=== PATIENT | female | born 1975 | race Caucasian/White ===

== ENCOUNTER 2017-11-15 11:46 | Emergency (ER) | payer MEDICARE, OTHER ==
[2017-11-15 12:16] VITALS: BP 106/69; PULSE 58; RESP 18; TEMP 98.1
[2017-11-15] MEDS ORDERED: DIPH,PERTUS(ACELL)TETVAC-LF 0.5 ML VIAL IM ONE (12:26)
--- NOTE | 2017-11-15 12:45 | XR ---
EXAMINATION TYPE: XR hand complete RT DATE OF EXAM: 11/15/2017 COMPARISON: NONE HISTORY: Pain and laceration TECHNIQUE: Three views are submitted. FINDINGS: The osseous structures are intact. The joint spaces are preserved and there is no acute fracture or dislocation. IMPRESSION: 1. No definite acute fracture or dislocation if symptoms persist, follow-up study in 7 to 10 days wo uld be suggested
--- NOTE | 2017-11-15 12:57 | ED ---
Wound/Laceration HPI - General Chief Complaint: Wound/Laceration Stated Complaint: Hand injury Time Seen by Provider: 11/15/17 12:20 Source: patient, RN notes reviewed Mode of arrival: ambulatory Limitations: no limitations - History of Present Illness Initial Comments: This is a 42-year-old female who presents to the emergency department with chief complaint of right hand laceration. Patient states that prior to arrival she was cutting a wong of hard brownies with a kitchen knife. She slipped and cut into the palm of her right hand. Patient states that she feels like the knife went deep into her hand. She states bleeding is controlled. Patient is unsure if she is up-to-date with her tetanus vaccination. Denies any other injuries. Denies fever, chills, abdominal pain, nausea or vomiting, constipation or diarrhea, numbness or tingling, headache or vision changes. - Related Data Home Medications Medication Instructions Recorded Confirmed ARIPiprazole [Abilify] 20 mg PO DAILY 11/15/17 11/15/17 Escitalopram [Lexapro] 20 mg PO DAILY 11/15/17 11/15/17 Previous Rx's Medication Instructions Recorded Cephalexin [Keflex] 500 mg PO Q12HR #20 cap 11/15/17 Allergies Allergy/AdvReac Type Severity Reaction Status Date / Time codeine phosphate AdvReac Chest Pain Verified 11/15/17 12:16 [From Tylenol-Codeine #3] tramadol AdvReac Itching Verified 11/15/17 12:16 Review of Systems ROS Statement: Those systems with pertinent positive or pertinent negative responses have been documented in the HPI. ROS Other: All systems not noted in ROS Statement are negative. Past Medical History Past Medical History: Osteoarthritis (OA) History of Any Multi-Drug Resistant Organisms: MRSA Date of last positivie culture/infection: 2009/MRSA MDRO Source:: back Past Surgical History: Section, Joint Replacement Additional Past Surgical History / Comment(s): LEFT and right knee Past Psychological History: Bipolar, Depression Smoking Status: Current every day smoker Past Alcohol Use History: Occasional Past Drug Use History: Marijuana General Exam - General Exam Comments Initial Comments: General: Awake and alert, well-developed; in no apparent distress. HEENT: Head atraumatic, normocephalic. Pupils are equal, round and reactive to light. Extraocular movements intact. Neck: Supple. Normal ROM. Cardiovascular: Regular rate and rhythm. No murmurs, rubs or gallops. Chest symmetrical. Respiratory: Lungs clear to auscultation bilaterally. No wheezes, rales or rhonchi. Normal respiratory effort with no use of accessory muscles. Musculoskeletal: Normal active range of motion of right hand. There is a small 1 cm linear laceration at the thenar eminence. Bleeding is controlled. Sensation is intact. Radial pulses are 2+ equal and palpable bilaterally. Skin: [place], warm and dry. Neurological: Alert and oriented x3. CN II-XII grossly intact. Speech is fluent and answers are appropriate. No focal neuro deficits. Psychiatric: Normal mood and affect. No overt signs of depression or anxiety noted. Limitations: no limitations Course Vital Signs 11/15/17 12:13 Temperature 98.1 F Pulse Rate 58 L Respiratory 18 Rate Blood Pressure 106/69 O2 Sat by Pulse 97 Oximetry Procedures - Laceration Laceration #1 Consent Obtained: verbal consent Indication: laceration Site: hand (right hand thenar eminence ) Size (cm): 1 Description: linear Depth: simple, single layer Anesthetic Used: lidocaine 1% Anesthesia Technique: local infiltration Amount (mls): 3 Pre-repair: wound explored, irrigated extensively, deep structures intact Type of Sutures: nylon Size of Sutures: 5-0 Number of Sutures: 2 Technique: simple, interrupted Patient Tolerated Procedure: well, no complications Medical Decision Making - Medical Decision Making This is a 42-year-old female presents to emergency department with chief complaint of right hand laceration. 2 sutures were placed and patient tolerated well without complication. She is neurovascularly intact. X-ray revealed no sign of bone involvement. Patient will be discharged home with prescription for Keflex. Return parameters were discussed. Patient is in agreement with plan and voices understanding. All questions were answered. - Radiology Data Radiology results: report reviewed Right hand x-ray impression: 1. No definite acute fracture dislocation if symptoms persist, follow-up study in 7-10 days would be suggested. Disposition Clinical Impression: Hand laceration Disposition: HOME SELF-CARE Condition: Good Instructions: Laceration (ED) Additional Instructions: Please have sutures removed in 10-14 days. Please take medications as prescribed. Please follow up with primary care provider within 1-2 days. Return to emergency department if symptoms should worsen or any concerns arise. Prescriptions: Cephalexin [Keflex] 500 mg PO Q12HR #20 cap Referrals: None,Stated [Primary Care Provider] - 1-2 days Xenia De Santiago MD [STAFF PHYSICIAN] - 1-2 days Time of Disposition: 13:25
== END 2017-11-15 13:29 | disposition home or self-care (01) ==
LOC: EC 11:46
DX: S61.411A Laceration without foreign body of right hand, initial encounter (principal); F31.9 Bipolar disorder, unspecified; F17.200 Nicotine dependence, unspecified, uncomplicated; Z23 Encounter for immunization; Z86.14 Personal history of Methicillin resistant Staphylococcus aureus infection; Z79.899 Other long term (current) drug therapy; Z88.5 Allergy status to narcotic agent; Z88.6 Allergy status to analgesic agent; W26.0XXA Contact with knife, initial encounter
CPT/HCPCS: 12001; 90471; 90715; 99283

== ENCOUNTER 2018-02-07 00:32 | Emergency (ER) | payer MEDICARE, OTHER ==
[2018-02-07 00:40] VITALS: RESP 18
--- NOTE | 2018-02-07 01:27 | XR ---
EXAM: XR Left Ankle Complete, 3 or More Views CLINICAL HISTORY: : Pain TECHNIQUE: Frontal, lateral and oblique views of the left ankle. COMPARISON: No relevant prior studies available. FINDINGS: Bones/joints: Unremarkable. No acute fracture. No dislocation. Soft tissues: Unremarkable. IMPRESSION: Normal left ankle x-rays.
--- NOTE | 2018-02-07 01:34 | XR ---
EXAM: XR Left Tibia and Fibula, 2 Views CLINICAL HISTORY: Pain TECHNIQUE: Frontal and lateral views of the left tibia and fibula. COMPARISON: No relevant prior studies available. FINDINGS: Bones/joints: Unremarkable. No acute fracture. No dislocation. There is a total knee arthroplasty the tibial component appears to be well aligned with no evidence for loosening. No evidence for fracture or malalignment of the tibia fibula IMPRESSION: Normal left tibia and fibula x-rays.
--- NOTE | 2018-02-07 01:49 | ED ---
Lower Extremity Injury HPI - General Chief Complaint: Extremity Injury, Lower Stated Complaint: leg pain Time Seen by Provider: 02/07/18 00:47 Source: patient, RN notes reviewed Mode of arrival: ambulatory - History of Present Illness Initial Comments: This is a 42-year-old female who presents to the emergency department with chief complaint of left bright and left ankle pain. Patient states that the pain began after going for a walk one week ago. She denies any specific injury or trauma. She states that her left ankle is painful with walking and she experiences a sharp shooting pain that starts at her ankle and radiates up her bright. She states that she has been icing and taking ibuprofen at home. Denies calf pain. Denies any recent surgeries, hospitalizations or travel. Denies any history of blood clots. Denies any hormone or OCP use. - Related Data Home Medications Medication Instructions Recorded Confirmed ARIPiprazole [Abilify] 20 mg PO DAILY 11/15/17 11/15/17 Escitalopram [Lexapro] 20 mg PO DAILY 11/15/17 11/15/17 Previous Rx's Medication Instructions Recorded Cephalexin [Keflex] 500 mg PO Q12HR #20 cap 11/15/17 Ibuprofen 600 mg PO Q6HR #20 tablet 02/07/18 Allergies Allergy/AdvReac Type Severity Reaction Status Date / Time codeine phosphate AdvReac Chest Pain Verified 11/15/17 12:16 [From Tylenol-Codeine #3] tramadol AdvReac Itching Verified 11/15/17 12:16 Review of Systems ROS Statement: Those systems with pertinent positive or pertinent negative responses have been documented in the HPI. ROS Other: All systems not noted in ROS Statement are negative. Past Medical History Past Medical History: Osteoarthritis (OA) History of Any Multi-Drug Resistant Organisms: MRSA Date of last positivie culture/infection: 2009/MRSA MDRO Source:: back Past Surgical History: Section, Joint Replacement Additional Past Surgical History / Comment(s): LEFT and right knee Past Psychological History: Bipolar, Depression Smoking Status: Current every day smoker Past Alcohol Use History: Occasional Past Drug Use History: Marijuana General Exam - General Exam Comments Initial Comments: General: Awake and alert, well-developed; in no apparent distress. is at bedside. HEENT: Head atraumatic, normocephalic. Pupils are equal, round and reactive to light. Extraocular movements intact. Oropharynx moist without erythema or exudate. Neck: Supple. Normal ROM. Cardiovascular: Regular rate and rhythm. No murmurs, rubs or gallops. Chest symmetrical. Respiratory: Lungs clear to auscultation bilaterally. No wheezes, rales or rhonchi. Normal respiratory effort with no use of accessory muscles. Musculoskeletal: Normal range of motion of the left ankle. There is tenderness on palpation surrounding the lateral malleolus with mild soft tissue swelling. There is tenderness along the left bright. No erythema, swelling or ecchymosis of the bright noted. No calf tenderness. Negative Lesvia's sign. Sensation is intact. Pedal and posterior tibial pulses are 2+ equal and palpable bilaterally. Skin: [place], warm and dry without rashes or lesions. Neurological: Alert and oriented x3. CN II-XII grossly intact. Speech is fluent and answers are appropriate. No focal neuro deficits. Psychiatric: Normal mood and affect. No overt signs of depression or anxiety noted. Course Vital Signs 02/07/18 00:36 Temperature 98.3 F Pulse Rate 74 Respiratory 18 Rate Blood Pressure 123/90 O2 Sat by Pulse 97 Oximetry Procedures - Orthopedic Splinting/Casting Injury #1 Side: left Lower Extremity Injury Location: ankle Lower Extremity Immobilizer: Richie wrap Medical Decision Making - Medical Decision Making 42-year-old female who presents to the emergency department with chief complaint of left bright and ankle pain. Denies any calf tenderness. PERC score is 0. There is soft tissue swelling noted to the lateral aspect of the left ankle and this area is tender on palpation. X-rays of the left tibia/fibula and ankle were unremarkable. Patient provided with an Richie bandage. Tolerated well and is neurovascularly intact. Vital signs are stable and patient is in no acute distress. Patient will be discharged home at this time. She is in agreement and voices understanding. All questions were answered. - Radiology Data Radiology results: report reviewed X-ray left tibia and fibula impression: Normal left tibia and fibula x-rays. X-ray left ankle impression: Normal left ankle x-rays. Disposition Clinical Impression: Left ankle pain Disposition: HOME SELF-CARE Condition: Good Instructions: Ankle Sprain (ED), Leg Pain (ED) Additional Instructions: Please rest, ice and elevate. May take ibuprofen 600 mg every 6 hours as needed for pain and inflammation. Please follow up with primary care provider within 1-2 days. Return to emergency department if symptoms should worsen or any concerns arise. Prescriptions: Ibuprofen 600 mg PO Q6HR #20 tablet Referrals: None,Stated [Primary Care Provider] - 1-2 days Time of Disposition: 01:47
[2018-02-07 01:58] VITALS: BP 103/56; PULSE 60; TEMP 98
== END 2018-02-07 01:58 | disposition home or self-care (01) ==
LOC: EC 00:32
DX: M25.572 Pain in left ankle and joints of left foot (principal); M25.472 Effusion, left ankle; M19.90 Unspecified osteoarthritis, unspecified site; F32.9 Major depressive disorder, single episode, unspecified; F17.200 Nicotine dependence, unspecified, uncomplicated; Z86.14 Personal history of Methicillin resistant Staphylococcus aureus infection; Z79.899 Other long term (current) drug therapy; Z88.5 Allergy status to narcotic agent; Z88.6 Allergy status to analgesic agent
CPT/HCPCS: 99283

== ENCOUNTER 2018-05-28 16:06 | Observation (INO) | payer MEDICARE, OTHER ==
[2018-05-28] MEDS ORDERED: LORazepam 1 MG TAB PO STA (16:48)
--- NOTE | 2018-05-28 16:59 | ED ---
Chest Pain HPI - General Chief Complaint: Chest Pain Stated Complaint: chest pain Time Seen by Provider: 05/28/18 16:38 Source: patient, RN notes reviewed Mode of arrival: ambulatory Limitations: no limitations - History of Present Illness Initial Comments: This is a 42-year-old female who presents to the emergency department with chief complaint of chest pain. Patient states that when she woke up this morning she received a phone call regarding bad news. Patient states that she has had a lot of stress in her life lately. She states that after she received this phone call, she developed left-sided pressure-like and heavy chest pain. She states that she then noticed some pain in her left wrist. She states that her friend came over to visit and she started to feel happy again. She states that then the chest pain and arm pain dissipated. She states that she drank 1 beer with her friend. She states that the chest pain then returned and the left wrist pain spread up to her elbow and then to her shoulder. She denies any injuries or trauma. States that the arm sometimes feels like "pinpricks." Patient states that she also feels shaky. During her episodes of chest pain she states that she felt lightheaded. Denied nausea or vomiting. Denies abdominal pain, fevers or chills. Patient denies any medical issues, stating that she has bipolar disorder for which she takes Lexapro and Abilify. Patient states that she is a current, every day smoker and smokes approximately one half pack per day. States that she does have a history of anxiety and anxiety attacks and has experienced these symptoms in the past. - Related Data Home Medications Medication Instructions Recorded Confirmed ARIPiprazole [Abilify] 20 mg PO DAILY 11/15/17 05/28/18 Escitalopram [Lexapro] 20 mg PO DAILY 11/15/17 05/28/18 Aspirin EC [Ecotrin Low Dose] 81 mg PO DAILY 05/28/18 05/28/18 medroxyPROGESTERone [Depo-Provera] 150 mg IM ONCE 05/28/18 05/28/18 Allergies Allergy/AdvReac Type Severity Reaction Status Date / Time codeine phosphate AdvReac Chest Pain Verified 05/28/18 17:15 [From Tylenol-Codeine #3] tramadol AdvReac Itching Verified 05/28/18 17:15 Review of Systems ROS Statement: Those systems with pertinent positive or pertinent negative responses have been documented in the HPI. ROS Other: All systems not noted in ROS Statement are negative. EKG Findings - EKG Comments: EKG Findings:: 16:36:59. Sinus bradycardia, otherwise normal ECG. Ventricular rate 53 beats per minute, MI interval 140, QRS duration 94, QT/QTc 402/377 Past Medical History Past Medical History: Osteoarthritis (OA) History of Any Multi-Drug Resistant Organisms: MRSA Date of last positivie culture/infection: 2009/MRSA MDRO Source:: back Past Surgical History: Section, Joint Replacement Additional Past Surgical History / Comment(s): LEFT and right knee Past Psychological History: Bipolar, Depression Smoking Status: Current every day smoker Past Alcohol Use History: Occasional Past Drug Use History: Marijuana General Exam - General Exam Comments Initial Comments: General: Awake and alert, well-developed; in no apparent distress. Patient is tearful. Appears anxious. HEENT: Head atraumatic, normocephalic. Pupils are equal, round and reactive to light. Extraocular movements intact. Oropharynx moist without erythema or exudate. Neck: Supple. Normal ROM. Cardiovascular: Regular rate and rhythm. No murmurs, rubs or gallops. Chest symmetrical. Respiratory: Lungs clear to auscultation bilaterally. No wheezes, rales or rhonchi. Normal respiratory effort with no use of accessory muscles. Abdomen: Soft, non-tender, non-distended. No rigidity, rebound or guarding. Normal bowel sounds in all 4 quadrants. Musculoskeletal: Normal ROM, no tenderness bilateral upper and lower extremities. Ambulating normally. Skin: [place], warm and dry without rashes or lesions. Neurological: Alert and oriented x3. CN II-XII grossly intact. Speech is fluent and answers are appropriate. No focal neuro deficits. Psychiatric: Anxious and melancholic. Course Vital Signs 05/28/18 05/28/18 16:11 17:39 Temperature 98.2 F Pulse Rate 71 56 L Respiratory 16 18 Rate Blood Pressure 167/88 136/74 O2 Sat by Pulse 99 98 Oximetry - Reevaluation(s) Reevaluation #1: At this time, patient is resting comfortably in bed. She states her symptoms have improved since receiving Ativan. Discussed laboratory findings with patient. She has a slightly elevated d-dimer at 0.61. Recommended CT angio of the chest and she is in agreement. 05/28/18 17:46 Chest Pain MDM - MDM This is a 42-year-old female who presents to the emergency department with chief complaint of chest pain. Patient reports feeling very stressed recently. She states she received bad news this morning and had acute onset of left- sided chest pain that she describes as heavy and pressure-like. Patient also reports feeling some pain in the left arm that started in the wrist and gradually spread to her shoulder. EKG revealed sinus bradycardia, otherwise unremarkable. Chest x-ray revealed no acute abnormalities. CBC and CMP are unremarkable. Troponin is negative. D-dimer slightly elevated at 0.61. Case was discussed with attending physician, Dr. Rod who recommended CT angiogram of the chest. this revealed no evidence for pulmonary embolus. On reexamination , patient states that she does continue to have some mild chest pain. Recommended admission for observation and repeat cardiac enzymes. Patient's vital signs have been stable and she is in no acute distress. She is in agreement for admission. She will be admitted to Dr. Sánchez with consult to Dr. Aragon. Chest x-ray impression: No acute cardiopulmonary process. CT angiogram chest impression: No evidence of pulmonary embolus. No acute cardiopulmonary process other than scattered subsegmental areas of atelectasis. Disposition Clinical Impression: Chest pain Disposition: ADMITTED IP TO THIS [facility] Condition: Good Is patient prescribed a controlled substance at d/c from ED?: No Referrals: None,Stated [Primary Care Provider] - 1-2 days Time of Disposition: 19:20
[2018-05-28 17:09] LABS: Appearance,Urine Clear (Clear); Basophils % (A) 1 %; Bilirubin,Urine Negative (Negative); Blood,Urine Negative (Negative); Color,Urine Colorless; Eosinophils # (A) 0.1 k/uL (0-0.7); Eosinophils % (A) 1 %; Glucose,Urine (UA) Negative (Negative); HCT 40.7 % (34.0-46.0); HGB 13.3 gm/dL (11.4-16.0); Ketones,Urine Negative (Negative); Leukocyte Esterase,Urine Negative (Negative); Lymphocytes # (A) 1.7 k/uL (1.0-4.8); Lymphocytes % (A) 27 %; MCH 28.3 pg (25.0-35.0); MCHC 32.5 g/dL (31.0-37.0); Mean Platelet Volume 6.6; Monocytes # (A) 0.3 k/uL (0-1.0); Monocytes % (A) 4 %; Neutrophils # (A) 4.1 k/uL (1.3-7.7); Neutrophils % (A) 66 %; Nitrite,Urine Negative (Negative); PH, Urine 6.5 (5.0-8.0); Platelet Count 298 k/uL (150-450); Protein,Urine Negative (Negative); RBC 4.68 m/uL (3.80-5.40); RDW 13.8 % (11.5-15.5); Specific Gravity,Urine 1.001 (1.001-1.035); Urobilinogen,Urine <2.0 mg/dL (<2.0); WBC 6.3 k/uL (3.8-10.6)
--- NOTE | 2018-05-28 17:17 | XR ---
EXAMINATION TYPE: XR chest 2V DATE OF EXAM: 05/28/2018 COMPARISON: NONE HISTORY: Chest pain TECHNIQUE: Frontal and lateral views of the chest are obtained. FINDINGS: There is no focal air space opacity, pleural effusion, or pneumothorax seen. The cardiac silhouette size is within normal limits. The osseous structures are intact. Mild multilevel degener ative change of the thoracic spine are seen. IMPRESSION: No acute cardiopulmonary process.
[2018-05-28 17:22] LABS: ALT 22 U/L (9-52); AST 14 U/L (14-36); Albumin 3.9 g/dL (3.5-5.0); Alkaline Phosphatase 62 U/L (38-126); Anion Gap 7 mmol/L; Blood Urea Nitrogen 10 mg/dL (7-17); Calcium 9.4 mg/dL (8.4-10.2); Carbon Dioxide 23 mmol/L (22-30); Chloride 111 mmol/L (98-107); Glucose 95 mg/dL (74-99); Magnesium 2.2 mg/dL (1.6-2.3); Partial Thromboplastin Time 22.7 sec (22.0-30.0); Potassium 3.8 mmol/L (3.5-5.1); Sodium 141 mmol/L (137-145); Total Bilirubin 0.3 mg/dL (0.2-1.3); Total Protein 6.4 g/dL (6.3-8.2)
[2018-05-28 17:25] LABS: Creatine Kinase 81 U/L (30-135)
[2018-05-28 17:32] LABS: D-Dimer 0.61 mg/L FEU (<0.60)
[2018-05-28 17:37] LABS: Creatine Kinase MB 0.3 ng/mL (0.0-2.4); Troponin I <0.012 ng/mL (0.000-0.034)
--- NOTE | 2018-05-28 19:14 | CT ---
EXAMINATION TYPE: CT angio chest DATE OF EXAM: 05/28/2018 COMPARISON: NONE HISTORY: Chest pain, elevated d-dimer CT DLP: 639 mGycm. Automated Exposure Control for Dose Reduction was Utilized. CONTRAST: CTA scan of the thorax is performed with IV Contrast, patient injected with 75 mL of Isovue 370, pulm onary embolism protocol. MIP Images are created on CT scanner and reviewed. FINDINGS: LUNGS: Scattered subsegmental atelectasis is present. The lungs are grossly clear, there is no concer levon parenchymal mass or nodule identified. There is no pleural effusion or pneumothorax seen. The tracheobronchial tree is patent. MEDIASTINUM: There is satisfactory enhancement of the pulmonary artery and its branches, there is no CT evidence for pulmonary embolism. There are no greater than 1 cm hilar or mediastinal lymph nodes. No cardiomegaly or pericardial effusion is seen. OTHER: Mild multilevel degenerative change of the thoracic spine is noted. IMPRESSION: No evidence of pulmonary embolus. No acute cardiopulmonary process other than scattered s ubsegmental areas of atelectasis.
[2018-05-28] MEDS ORDERED: NITROGLYCERIN SL TABS 0.4 MG TAB SUBLINGUAL PRN (19:21)
--- NOTE | 2018-05-28 21:08 | HP ---
HISTORY AND PHYSICAL CHIEF COMPLAINT: 42-year-old white female with chest pain. HISTORY OF PRESENT ILLNESS: 42-year-old female who woke up this morning with severe anxiety and stress in her life. She developed pressure in her chest and pain in her left breast. She states the chest pain and arm pain dissipated when her friend came over. She was less anxious. She had a beer with her friend. Chest pain then returned and in her rest of her shoulder. She came to emergency room. Pinpricks. Shaky and nausea, vomiting. She has bipolar disorder, takes and Abilify. She smokes 1 pack a day for many years and has anxiety attacks in the past. HOME MEDICATIONS: Abilify 20 mg daily, Lexapro 20 mg daily, aspirin 81 mg daily, ProAir 150 mg IM once a week. ALLERGIES: TO CODEINE AND TRAMADOL. REVIEW OF SYSTEMS: Fourteen point review of systems negative except for mentioned in HPI. EKG sinus Randal, normal EKG. Troponins negative. PAST MEDICAL HISTORY: Bipolar, osteoarthritis, history of MRSA, , joint replacement, nicotine addiction, marijuana, she had left and right knee surgeries in the past. PHYSICAL EXAMINATION: Temp 98.2, pulse is 56 to 71, respiratory 16 to 18, blood pressure 130s to 160s over 70s to 80s. O2 99% on room air. Cardiovascular: S1, S2. Lungs clear. GI soft. Musculoskeletal nontender. Normal range of motion. Skin warm, dry. Neurologic alert and orient x3. Psych: Fair mood and poor affect. HEENT within normal limits. Neck shows no thyromegaly. Abdomen takes some of her chest pain away. CT scan of the chest in the emergency room, angiogram was negative for PE. ASSESSMENT: Atypical chest pain. Possibly anxiety and costochondritis. We will rule out myocardial infarction. CT of the chest was negative. Await for Cardiology consult. Possible stress test tomorrow. Depending on labs. We will check thyroid. Continue home medications. MMODL / IJN: [id number] /
[2018-05-28 21:37] VITALS: BMI 36.6
[2018-05-28] MEDS ORDERED: ESCITALOPRAM 20 MG TAB PO SCH (22:45)
[2018-05-28 22:56] LABS: T4, Free (Free Thyroxine) 1.18 ng/dL (0.78-2.19)
--- NOTE | 2018-05-28 23:18 | CT ---
EXAMINATION TYPE: CT brain ilda wo con DATE OF EXAM: 05/28/2018 COMPARISON: None HISTORY: Left arm numbness. CT DLP: 1741 mGycm Automated exposure control for dose reduction was used. TECHNIQUE: CT scan of the head and cervical spine are performed without contrast. FINDINGS: Ventricles and sulci appear normal. There is no mass effect nor midline shift. There is n o sign of intracranial hemorrhage. The calvarium is intact. There is mucosal thickening in the left m axillary sinus. There is previous sinus surgery. Cervical vertebra show some straightening. Disc spaces are normal. Posterior elements are intact. Fac et joints appear normal. Skull base is intact. There is no evidence of a fracture. IMPRESSION: Mild left maxillary sinusitis. Otherwise negative CT scan of the brain. Negative CT scan of the cervical spine.
[2018-05-28 23:28] LABS: Creatine Kinase 71 U/L (30-135)
[2018-05-28 23:40] LABS: Creatine Kinase MB 0.3 ng/mL (0.0-2.4); Troponin I <0.012 ng/mL (0.000-0.034)
[2018-05-29] MEDS: SODIUM CHLORIDE 0.9% 1,000 ML IV SCH ×2 (00:20→12:14)
[2018-05-29 01:51] LABS: Cholesterol 141 mg/dL (<200); HDL Cholesterol 29 mg/dL (40-60); LDL Cholesterol,Calculated 93 mg/dL (0-99); Triglycerides 95 mg/dL (<150)
[2018-05-29] MEDS: NICOTINE 14MG/24HR PATCH TRANSDERM SCH ×2 (04:24→12:15)
[2018-05-29 06:01] LABS: Creatine Kinase 56 U/L (30-135)
[2018-05-29 06:14] LABS: Creatine Kinase MB <0.2 ng/mL (0.0-2.4); Troponin I <0.012 ng/mL (0.000-0.034)
[2018-05-29] MEDS ORDERED: NON-FORMULARY DRUG (Aspirin Ec 81 MG) PO SCH (09:00)
[2018-05-29] MEDS ORDERED: ASPIRIN 325 MG TAB PO SCH (09:00)
[2018-05-29] MEDS ORDERED: ESCITALOPRAM 20 MG TAB PO SCH (09:00)
--- NOTE | 2018-05-29 10:36 | P.CRDCN ---
History of Present Illness History of present illness: Lisa Soriano is a pleasant 42-year-old female past medical history significant for chronic nicotine dependence, depression and bipolar. She denies history of coronary artery disease and is never seen a transcript evaluator for any reason. We've been asked to see her in consultation for symptoms of chest pain she states yesterday she was notified in the morning that she wasn't getting a house that she had hoped for. After becoming upset she started developing pain in the chest described as a tight squeezing and burning sensation. The pain radiated down into the left arm and through to the back. She denies pain in the neck or jaw. She became short of breath and dizzy. The symptoms persisted for most of the day yesterday with episodes of cessation of symptoms. She denies associated palpitations, diaphoresis, nausea or vomiting. Symptoms have subsided since she came to the hospital. She did attempt yesterday to take Tums and achieved no relief of this discomfort. EKG on arrival reveals sinus bradycardia rate 53 with no evidence of ST or T- wave abnormalities. Chest x-ray is negative for an acute cardiopulmonary process. CT angio chest negative for pulmonary embolism. Laboratory data reviewed, hemoglobin 13.3, platelets 298, d-dimer 0.61, sodium 141, potassium 3.8, magnesium 2.2, creatinine 0.81, cardiac enzymes negative 3 , LDL 93, HDL 29, TSH 0.213 and free T4 1 0.18. She takes no cardiac medications. There is no old cardiac testing to review. Review of Systems At the time of my exam: CONSTITUTIONAL: Denies fever. Denies chills. EYES: Denies blurred vision. Denies vision changes. Denies eye pain. EARS, NOSE, MOUTH & THROAT: Denies headache. Denies sore throat. Denies ear pain. CARDIOVASCULAR: Denies chest pain. Denies shortness of breath. Denies orthopnea. Denies PND. Denies palpitations. RESPIRATORY: Denies cough. GASTROINTESTINAL: Denies abdominal pain. Denies diarrhea. Denies constipation. Denies nausea. Denies vomiting. MUSCULOSKELETAL: Denies myalgias. INTEGUMENTARY: Denies pruitis. Denies rash. NEUROLOGIC: Denies numbness. Denies tingling. Denies weakness. PSYCHIATRIC: Denies anxiety. Denies depression. ENDOCRINE: Denies fatigue. Denies weight change. Denies polydipsia. Denies polyurina. GENITOURINARY: Denies burning, hematuria or urgency with micturation. HEMATOLOGIC: Denies history of anemia. Denies bleeding. Past Medical History Past Medical History: Osteoarthritis (OA) History of Any Multi-Drug Resistant Organisms: MRSA Date of last positivie culture/infection: 12/20/10 MDRO Source:: Unknown Past Surgical History: Section, Cholecystectomy, Joint Replacement Additional Past Surgical History / Comment(s): LEFT and right knee Past Psychological History: Bipolar, Depression Smoking Status: Current every day smoker Past Alcohol Use History: Occasional Past Drug Use History: Marijuana Medications and Allergies Home Medications Medication Instructions Recorded Confirmed Type ARIPiprazole [Abilify] 20 mg PO DAILY 11/15/17 05/28/18 History Escitalopram [Lexapro] 20 mg PO DAILY 11/15/17 05/28/18 History Aspirin EC [Ecotrin Low Dose] 81 mg PO DAILY 05/28/18 05/28/18 History medroxyPROGESTERone [Depo-Provera] 150 mg IM ONCE 05/28/18 05/28/18 History Allergies Allergy/AdvReac Type Severity Reaction Status Date / Time codeine phosphate AdvReac Chest Pain Verified 05/28/18 17:15 [From Tylenol-Codeine #3] tramadol AdvReac Itching Verified 05/28/18 17:15 Physical Exam Vitals: Vital Signs Temp Pulse Pulse Resp BP BP Pulse Ox 05/29/18 07:35 98.1 F 58 L 18 95/61 99 05/29/18 04:11 16 05/29/18 03:40 98.6 F 63 16 105/62 96 05/29/18 00:00 16 05/28/18 23:56 99 F 66 16 104/59 97 05/28/18 20:56 98.7 F 66 16 121/76 97 05/28/18 20:00 16 05/28/18 19:49 98.9 F 57 L 18 132/67 100 05/28/18 17:39 56 L 18 136/74 98 05/28/18 16:11 98.2 F 71 16 167/88 99 Intake and Output 05/28/18 05/29/18 05/29/18 22:59 06:59 14:59 Other: Weight 106.2 kg Blood pressure 95/61 heart rate 58 afebrile maintaining oxygen saturation on room air GENERAL: This is a 42-year-old female in no apparent distress at the time of my examination. Obese. HEENT: Head is atraumatic, normocephalic. Pupils are equal, round. Sclerae anicteric. Conjunctivae are clear. Mucous membranes of the mouth are moist. Neck is supple. There is no jugular venous distention. No carotid bruit is heard. LUNGS: Clear to auscultation no wheezes, rales or rhonchi. No chest wall tenderness is noted on palpation or with deep breathing. HEART: Regular rate and rhythm without murmurs, rubs or gallops. S1 and S2 heard. ABDOMEN: Soft, nontender. Bowel sounds are heard. No organomegaly noted. EXTREMITIES: No evidence of peripheral edema and no calf tenderness noted. VASCULAR: Radial and dorsalis pedis pulses palpated, no evidence of clubbing. NEUROLOGIC: Patient is awake, alert and oriented x3. Results 05/28/18 16:52 05/28/18 16:52 Cardiac Enzymes 05/28/18 05/28/18 05/28/18 Range/Units 16:52 16:52 22:46 AST 14 (14-36) U/L CK-MB (CK-2) 0.3 0.3 (0.0-2.4) ng/mL Troponin I <0.012 <0.012 (0.000-0.034) ng/mL 05/29/18 Range/Units 05:25 AST (14-36) U/L CK-MB (CK-2) <0.2 (0.0-2.4) ng/mL Troponin I <0.012 (0.000-0.034) ng/mL Coagulation 05/28/18 Range/Units 16:52 PT 10.0 (9.0-12.0) sec APTT 22.7 (22.0-30.0) sec Lipids 05/28/18 Range/Units 16:52 Triglycerides 95 (<150) mg/dL Cholesterol 141 (<200) mg/dL HDL Cholesterol 29 L (40-60) mg/dL CBC 05/28/18 Range/Units 16:52 WBC 6.3 (3.8-10.6) k/uL RBC 4.68 (3.80-5.40) m/uL Hgb 13.3 (11.4-16.0) gm/dL Hct 40.7 (34.0-46.0) % Plt Count 298 (150-450) k/uL Comprehensive Metabolic Panel 05/28/18 Range/Units 16:52 Sodium 141 (137-145) mmol/L Potassium 3.8 (3.5-5.1) mmol/L Chloride 111 H (98-107) mmol/L Carbon Dioxide 23 (22-30) mmol/L BUN 10 (7-17) mg/dL Creatinine 0.81 (0.52-1.04) mg/dL Glucose 95 (74-99) mg/dL Calcium 9.4 (8.4-10.2) mg/dL AST 14 (14-36) U/L ALT 22 (9-52) U/L Alkaline Phosphatase 62 (38-126) U/L Total Protein 6.4 (6.3-8.2) g/dL Albumin 3.9 (3.5-5.0) g/dL Current Medications Generic Name Dose Route Start Last Admin Trade Name Freq PRN Reason Stop Dose Admin Aripiprazole 20 mg 05/28/18 22:45 05/29/18 04:22 Abilify PO Not Given HS [facility] Aspirin 325 mg 05/29/18 09:00 Aspirin PO DAILY [facility] Escitalopram Oxalate 20 mg 05/28/18 22:45 05/29/18 04:22 Lexapro PO Not Given HS [facility] Sodium Chloride 1,000 mls @ 100 mls/hr 05/28/18 19:30 05/29/18 00:20 Saline 0.9% IV Not Given .Q10H [facility] Nicotine 1 patch 05/28/18 23:30 05/29/18 04:24 Habitrol 14mg/24hr Patch TRANSDERM 1 patch DAILY [facility] Administration Nitroglycerin 0.4 mg 05/28/18 19:21 Nitrostat SUBLINGUAL Q5M PRN Chest Pain Intake and Output 05/28/18 05/29/18 05/29/18 22:59 06:59 14:59 Other: Weight 106.2 kg 05/28/18 16:52 05/28/18 16:52 Assessment and Plan Assessment: ASSESSMENT Chest pain, atypical. An acute coronary event has been ruled out with no EKG evidence of ischemia and negative cardiac enzymes. Symptoms may be related to an acute anxiety reaction. History of bipolar depression Chronic nicotine dependence Obesity PLAN Obtain 2-D echocardiogram and Doppler study to assess cardiac structure and function. Perform exercise stress echocardiogram to assess for stress-induced cardiac ischemia. If stress test is normal she is stable from a cardiac perspective. Smoking cessation highly recommended and lifestyle modifications to increase activity and weight loss. Thank you kindly for this consultation. The above impression and plan of care have been discussed and directed by the signing physician. Lizzette Beck, nurse practitioner, acting as scribe for signing physician.
--- NOTE | 2018-05-29 11:33 | ECHOS ---
STRESS ECHOCARDIOGRAM DATE OF SERVICE: 05/29/2018 INDICATIONS: Chest pain. MEDICATIONS: BASELINE HEART RATE: 52 BASELINE BLOOD PRESSURE: 154/49 MAXIMUM HEART RATE: 161 MAXIMUM BLOOD PRESSURE: 150/70 85% MPHR: 152 100% MPHR: 179 METS: 9 MAXIMUM STAGE REACHED: TOTAL EXERCISE TIME: 8 minutes CLINICAL INFORMATION: Baseline EKG shows sinus rhythm, normal axis, normal intervals. Patient exercised on [place] protocol for a total of 8 minutes achieving 9 METs, 89% of predicted maximal heart rate without chest pain or diagnostic ST-segment depression. Baseline echo shows normal left ventricular size, wall motion and systolic function. Postexercise, there is normal hyperdynamic response of all segments of myocardium noted. CONCLUSIONS: 1. Negative stress test by EKG criteria. 2. Negative stress echo. MMODL / IJN: [id number] /
[2018-05-29 11:56] VITALS: BP 103/67; PULSE 60; TEMP 98.2
[2018-05-29 12:18] VITALS: RESP 16
== END 2018-05-29 15:03 | disposition home or self-care (01) ==
LOC: EC 16:06 → 3OBS 19:31
PROVIDERS: ADMIT Family Medicine; ATTEND Family Medicine
DX: R07.89 Other chest pain (principal); F17.210 Nicotine dependence, cigarettes, uncomplicated; E66.9 Obesity, unspecified; F31.9 Bipolar disorder, unspecified; F41.9 Anxiety disorder, unspecified; N64.4 Mastodynia; M19.90 Unspecified osteoarthritis, unspecified site; Z68.36 Body mass index [BMI] 36.0-36.9, adult; Z79.82 Long term (current) use of aspirin; Z79.899 Other long term (current) drug therapy; Z86.14 Personal history of Methicillin resistant Staphylococcus aureus infection; Z90.49 Acquired absence of other specified parts of digestive tract
CPT/HCPCS: 99285; 36415; 93005; 93306; 93351; 85379; 84439; 80061; 80053; 84443; 82550 ×2; 82553 ×2; 83735; 84484 ×2; 85025; 85610; 85730; 81003; 71046; 72125; 70450; 71275; G0378 ×2; S4990; Q9967

== ENCOUNTER 2019-01-08 13:13 | Emergency (ER) | payer MEDICARE, OTHER ==
[2019-01-08 13:19] VITALS: BP 125/85; PULSE 72; TEMP 98.3
--- NOTE | 2019-01-08 13:56 | XR ---
EXAMINATION TYPE: XR chest 2V DATE OF EXAM: 01/08/2019 COMPARISON: 05/28/2018 TECHNIQUE: PA and lateral views submitted. HISTORY: Cough FINDINGS: The lungs are clear and there is no pneumothorax, pleural effusion, or focal pneumonia. Hypertrophi c and degenerative changes spine. Hyperinflation suggests COPD. IMPRESSION: 1. No acute process.
--- NOTE | 2019-01-08 14:04 | ED ---
General Adult HPI - General Chief complaint: Upper Respiratory Infection Stated complaint: poss flu Time Seen by Provider: 01/08/19 13:20 Source: patient, RN notes reviewed, old records reviewed Mode of arrival: ambulatory Limitations: no limitations - History of Present Illness Initial comments: 43-year-old female patient no pertinent past medical history presents ED after a possible influenza exposure. Patient reports that she was at a snf and a patient there is diagnosed influenza. Patient reports that she has complaints of 2 days of waxing and waning nonproductive cough. Some generalized myalgias. Rhinitis. Patient denies any other complaints today. Denies abdominal pain, chest pain, sob. Systemic: Pt denies fatigue, myalgia, fever/chills, rash. Pt denies weakness, night sweats, weight loss. Neuro: Pt denies headache, visual disturbances, syncope or pre-syncope. HEENT: Pt denies ocular discharge or irritation, otalgia, rhinorrhea, pharyngitis or notable lymphadenopathy. Cardiopulmonary: Pt denies chest pain, SOB, heart palpitations, dyspnea on exertion. Abdominal/GI: Pt denies abdominal pain, n/v/d. : Pt denies dysuria, burning w/ urination, frequency/urgency. Denies new onset urinary or bowel incontinence. MSK: Pt denies myalgia, loss of strength or function in extremities. Neuro: Pt denies new onset weakness, paresthesias. - Related Data Home Medications Medication Instructions Recorded Confirmed ARIPiprazole [Abilify] 20 mg PO DAILY 11/15/17 05/28/18 Escitalopram [Lexapro] 20 mg PO DAILY 11/15/17 05/28/18 Aspirin EC [Ecotrin Low Dose] 81 mg PO DAILY 05/28/18 05/28/18 medroxyPROGESTERone [Depo-Provera] 150 mg IM ONCE 05/28/18 05/28/18 Allergies Allergy/AdvReac Type Severity Reaction Status Date / Time codeine phosphate AdvReac Chest Pain Verified 01/08/19 13:18 [From Tylenol-Codeine #3] tramadol AdvReac Itching Verified 01/08/19 13:18 Review of Systems ROS Statement: Those systems with pertinent positive or pertinent negative responses have been documented in the HPI. ROS Other: All systems not noted in ROS Statement are negative. Past Medical History Past Medical History: Osteoarthritis (OA) History of Any Multi-Drug Resistant Organisms: MRSA Date of last positivie culture/infection: 12/20/10 MDRO Source:: Unknown Past Surgical History: Section, Cholecystectomy, Joint Replacement Additional Past Surgical History / Comment(s): LEFT and right knee Past Psychological History: Bipolar, Depression Smoking Status: Current every day smoker Past Alcohol Use History: Occasional Past Drug Use History: Marijuana General Exam - General Exam Comments Initial Comments: Constitutional: NAD, AOX3, Pt has pleasant affect. HEENT: NC/AT, trachea midline, neck supple, no lymphadenopathy. Posterior pharynx non erythematous, without exudates. External ears appear normal, without discharge. Mucous membranes moist. Eyes PERRLA, EOM intact. There is no scleral icterus. No pallor noted. Cardiopulmonary: RRR, no murmurs, rubs or gallops, no JVD noted. Lungs CTAB in anterior and posterior dahl. No peripheral edema. Abdominal exam: Abdomen soft and non-distended. Abdomen non-tender to palpation in all 4 quadrants. Bowel sounds active in LLQ. No hepatosplenomegaly. No e cchymosis Neuro: CN II-XII grossly intact. No nuchal rigidity. MSK: No posterior calf tenderness bilaterally, homans sign negative bilaterally. Posterior tibialis and radial pulse +2 bilaterally. Sensation intact in upper and lower extremities. Full active ROM in upper and lower extremities, 5/5 stregnth. Limitations: no limitations Course Vital Signs 01/08/19 01/08/19 13:15 14:19 Temperature 98.3 F Pulse Rate 72 Respiratory 16 20 Rate Blood Pressure 125/85 O2 Sat by Pulse 98 Oximetry Medical Decision Making - Medical Decision Making 43-year-old female patient no pertinent past medical history presents ED after a possible influenza exposure. Patient reports that she was at a snf and a patient there is diagnosed influenza. Patient reports that she has complaints of 2 days of waxing and waning nonproductive cough. Some generalized myalgias. Rhinitis. Patient denies any other complaints today. Denies abdominal pain, chest pain, sob. Patient vital signs stable, afebrile. Physical exam did not display acute pathology. Laboratory investigations revealed negative influenza. Chest x-ray revealed no acute process. Patient likely has viral upper respiratory tract infection. Patient to continue monitor symptoms, symptomatic treatment at home. Patient will follow-up with primary care right 1-2 days for continued evaluation. Patient will return to ER if condition worsens in any way. Case discussed with Dr. Zimmerman. - Lab Data Lab Results 01/08/19 Range/Units 13:34 Influenza Type A RNA Not Detected (Not Detectd) Influenza Type B (PCR) Not Detected (Not Detectd) Disposition Clinical Impression: Cough Disposition: HOME SELF-CARE Condition: Stable Instructions (If sedation given, give patient instructions): Upper Respiratory Infection (ED) Additional Instructions: Patient to adhere to previously discussed treatment plan and will take medication(s) as directed. Patient to follow up with PCP in 1-2 days. Patient to return to ED if symptoms do not improve. Return to ER if condition worsens in any way. Is patient prescribed a controlled substance at d/c from ED?: No Referrals: None,Stated [Primary Care Provider] - 1-2 days
[2019-01-08 14:23] VITALS: RESP 20
== END 2019-01-08 14:55 | disposition home or self-care (01) ==
LOC: EC 13:13
DX: R05 Cough (principal); M79.10 Myalgia, unspecified site; M19.90 Unspecified osteoarthritis, unspecified site; F32.9 Major depressive disorder, single episode, unspecified; F17.200 Nicotine dependence, unspecified, uncomplicated; Z86.14 Personal history of Methicillin resistant Staphylococcus aureus infection; Z96.89 Presence of other specified functional implants; Z79.82 Long term (current) use of aspirin; Z79.3 Long term (current) use of hormonal contraceptives; Z79.899 Other long term (current) drug therapy; Z88.5 Allergy status to narcotic agent
CPT/HCPCS: 71046; 87502; 99284

== ENCOUNTER 2019-05-03 17:34 | Emergency (ER) | payer MEDICARE, OTHER ==
[2019-05-03] MEDS ORDERED: KETOROLAC 30 MG/ML 1 ML VIAL IM STA (18:31)
[2019-05-03] MEDS ORDERED: LIDOCAINE 5% PATCH TOPICAL STA (18:31)
[2019-05-03] MEDS ORDERED: CYCLOBENZAPRINE 10MG STARTER 3 TAB BTL PO STA (18:32)
--- NOTE | 2019-05-03 18:34 | ED ---
Back Pain HPI - General Chief Complaint: Back Pain/Injury Stated Complaint: BACK PAIN Time Seen by Provider: 05/03/19 18:07 Source: patient Limitations: no limitations - History of Present Illness Initial Comments: 43-year-old female patient presents to the emergency department today for evaluation of right upper back pain. Patient states that she woke this morning with muscle tightness and pain to the right shoulder.. Patient states she has increased pain with any movement of her head or the right arm. Patient states she is unable to bend or twist related to the pain. Patient denies any shortness of breath or chest pain with this. Denies any known injury. States that she has had similar symptoms one time in the past. She took Tylenol for pain relief but it did not help. Patient denies any recent rash, fever, chills, abdominal pain, nausea, vomiting, diarrhea, constipation, numbness, tingling, dizziness, weakness, hematuria, dysuria, urinary urgency, urinary frequency, headache, visual changes, or any other complaints. - Related Data Home Medications Medication Instructions Recorded Confirmed ARIPiprazole [Abilify] 20 mg PO DAILY 11/15/17 05/28/18 Escitalopram [Lexapro] 20 mg PO DAILY 11/15/17 05/28/18 Aspirin EC [Ecotrin Low Dose] 81 mg PO DAILY 05/28/18 05/28/18 medroxyPROGESTERone [Depo-Provera] 150 mg IM ONCE 05/28/18 05/28/18 Previous Rx's Medication Instructions Recorded Cyclobenzaprine [Flexeril] 10 mg PO TID #15 tab 05/03/19 Lidocaine 5% Patch [Lidoderm] 1 patch TOPICAL DAILY #5 patch 05/03/19 Naproxen [EC-Naprosyn] 500 mg PO BID PRN #30 tablet. 05/03/19 Allergies Allergy/AdvReac Type Severity Reaction Status Date / Time codeine phosphate AdvReac Chest Pain Verified 05/03/19 17:41 [From Tylenol-Codeine #3] tramadol AdvReac Itching Verified 05/03/19 17:41 Review of Systems ROS Statement: Those systems with pertinent positive or pertinent negative responses have been documented in the HPI. ROS Other: All systems not noted in ROS Statement are negative. Past Medical History Past Medical History: Osteoarthritis (OA) History of Any Multi-Drug Resistant Organisms: None Reported, MRSA Date of last positivie culture/infection: 12/20/10 MDRO Source:: Unknown Past Surgical History: Section, Cholecystectomy, Joint Replacement Additional Past Surgical History / Comment(s): LEFT and right knee Past Psychological History: Bipolar, Depression Smoking Status: Current every day smoker Past Alcohol Use History: Occasional Past Drug Use History: None Reported General Exam Limitations: no limitations General appearance: alert, in no apparent distress, other (This is a well- developed, well-nourished adult female patient in no acute distress. Vital signs upon presentation are temperature 98.4F, pulse 74, respirations 18, blood pressure 128/84, pulse ox 98% on room air.) Eye exam: Present: normal appearance, PERRL, EOMI. Absent: scleral icterus, conjunctival injection, periorbital swelling ENT exam: Present: normal exam, normal oropharynx, mucous membranes moist Respiratory exam: Present: normal lung sounds bilaterally. Absent: respiratory distress, wheezes, rales, rhonchi, stridor Cardiovascular Exam: Present: regular rate, normal rhythm, normal heart sounds. Absent: systolic murmur, diastolic murmur, rubs, gallop, clicks GI/Abdominal exam: Present: soft, normal bowel sounds. Absent: distended, tenderness, guarding, rebound, rigid Back exam: Present: tenderness (Tenderness over the right scapula, muscle spasm noted). Absent: normal inspection Neurological exam: Present: alert, oriented X3, CN II-XII intact Psychiatric exam: Present: normal affect, normal mood Course Vital Signs 05/03/19 05/03/19 17:41 19:30 Temperature 98.4 F 98.2 F Pulse Rate 74 70 Respiratory 18 17 Rate Blood Pressure 128/84 125/80 O2 Sat by Pulse 98 99 Oximetry Medical Decision Making - Medical Decision Making 43-year-old male patient presents to the emergency department today for evaluation of right upper back pain that was present upon awakening this morning. Patient states the pain is constant but does worsen with any movement of the head and neck and the right arm. Physical examination did reveal muscle tightness to the right scapular region. Symptoms are consistent with muscle spasm. She'll be treated with anti-inflammatories and muscle relaxer. She is instructed to apply warm compresses. To be given a Lidoderm patch. She is instructed to follow-up with her primary care physician for recheck in 1-2 days. Return parameters were discussed in detail. She verbalizes understanding and agrees with this plan. Disposition Clinical Impression: Muscle spasm of back Disposition: HOME SELF-CARE Condition: Good Instructions (If sedation given, give patient instructions): Muscle Spasm (ED), Warm Compress or Soak (ED) Additional Instructions: Apply warm compresses 20 minutes at a time at least 4 times daily. Take medications as directed. Perform gentle stretching exercises to the painful area. Follow-up with your primary care physician for recheck in 1-2 days. Return to the emergency department immediately for any new, worsening, or concerning symptoms. Prescriptions: Naproxen [EC-Naprosyn] 500 mg PO BID PRN #30 tablet. PRN Reason: Pain Cyclobenzaprine [Flexeril] 10 mg PO TID #15 tab Lidocaine 5% Patch [Lidoderm] 1 patch TOPICAL DAILY #5 patch Is patient prescribed a controlled substance at d/c from ED?: No Referrals: None,Stated [Primary Care Provider] - 1-2 days Time of Disposition: 18:34
[2019-05-03 19:34] VITALS: BP 125/80; PULSE 70; RESP 17; TEMP 98.2
== END 2019-05-03 19:34 | disposition home or self-care (01) ==
LOC: EC 17:34
DX: M62.830 Muscle spasm of back (principal); M62.838 Other muscle spasm; M19.90 Unspecified osteoarthritis, unspecified site; F31.9 Bipolar disorder, unspecified; F17.200 Nicotine dependence, unspecified, uncomplicated; Z88.5 Allergy status to narcotic agent; Z79.82 Long term (current) use of aspirin; Z79.890 Hormone replacement therapy; Z79.899 Other long term (current) drug therapy; Z86.14 Personal history of Methicillin resistant Staphylococcus aureus infection; Z96.653 Presence of artificial knee joint, bilateral
CPT/HCPCS: 99283; 96372; J1885

== ENCOUNTER 2020-08-04 06:04 | Emergency (ER) | payer MEDICARE, OTHER ==
[2020-08-04 06:11] VITALS: RESP 18; TEMP 97.9
[2020-08-04] MEDS ORDERED: SODIUM CHLORIDE 0.9% 2,000 ML IV STA (06:19)
[2020-08-04] MEDS ORDERED: diphenhydrAMINE 50 MG/ML 1 ML VIAL IVP STA (06:19)
[2020-08-04] MEDS ORDERED: METOCLOPRAMIDE 5 MG/ML 2 ML VIAL IVP STA (06:19)
[2020-08-04] MEDS ORDERED: FAMOTIDINE 20 MG/2 ML VIAL IV STA (06:19)
--- NOTE | 2020-08-04 06:21 | ED ---
Abdominal Pain HPI - General Chief Complaint: Abdominal Pain Stated Complaint: Vomiting Time Seen by Provider: 08/04/20 06:06 Source: patient, RN notes reviewed Mode of arrival: ambulatory Limitations: no limitations - History of Present Illness Initial Comments: This a 45-year-old female presents emergency Department chief complaint nausea vomiting since yesterday morning. Patient states been persistent she states she used approximately every 15 minutes. Patient states that she has bile emesis at this time. Denies any hematemesis or coffee-ground emesis. Patient states that she's had no sick contacts no diarrhea no constipation she's had prior section and cholecystectomy. Denies chest pain, shortness breath, headache or dizziness. - Related Data Home Medications Medication Instructions Recorded Confirmed Escitalopram [Lexapro] 20 mg PO HS 11/15/17 08/04/20 traZODone HCL 100 mg PO HS PRN 08/04/20 08/04/20 Previous Rx's Medication Instructions Recorded Cephalexin [Keflex] 500 mg PO Q8HR #21 cap 08/04/20 Famotidine [Pepcid] 20 mg PO BID #28 tablet 08/04/20 Ondansetron Odt [Zofran Odt] 4 mg PO Q6HR PRN #10 tab 08/04/20 Allergies Allergy/AdvReac Type Severity Reaction Status Date / Time codeine phosphate AdvReac Chest Pain Verified 08/04/20 07:54 [From Tylenol-Codeine #3] tramadol AdvReac Itching Verified 08/04/20 07:54 Review of Systems ROS Statement: Those systems with pertinent positive or pertinent negative responses have been documented in the HPI. ROS Other: All systems not noted in ROS Statement are negative. Past Medical History Past Medical History: Osteoarthritis (OA) History of Any Multi-Drug Resistant Organisms: None Reported Date of last positivie culture/infection: 12/20/10 MDRO Source:: Unknown Past Surgical History: Section, Cholecystectomy, Joint Replacement Additional Past Surgical History / Comment(s): LEFT and right knee Past Psychological History: Bipolar, Depression Smoking Status: Current some day smoker Past Alcohol Use History: Occasional Past Drug Use History: None Reported General Exam Limitations: no limitations General appearance: alert, in no apparent distress Head exam: Present: atraumatic, normocephalic, normal inspection Eye exam: Present: normal appearance, PERRL, EOMI. Absent: scleral icterus, conjunctival injection, periorbital swelling ENT exam: Present: normal exam, normal oropharynx, mucous membranes moist Neck exam: Present: normal inspection, full ROM. Absent: tenderness, meningismus, lymphadenopathy Respiratory exam: Present: normal lung sounds bilaterally. Absent: respiratory distress, wheezes, rales, rhonchi, stridor Cardiovascular Exam: Present: regular rate, normal rhythm, normal heart sounds. Absent: systolic murmur, diastolic murmur, rubs, gallop, clicks GI/Abdominal exam: Present: soft, tenderness (Mild diffuse), normal bowel sounds. Absent: distended, guarding, rebound, rigid Back exam: Absent: CVA tenderness (R), CVA tenderness (L) Neurological exam: Present: alert, oriented X3 Skin exam: Present: warm, dry, intact, normal color. Absent: rash Course Vital Signs 08/04/20 08/04/20 06:07 07:52 Temperature 97.9 F Pulse Rate 66 56 L Respiratory 18 18 Rate Blood Pressure 144/91 121/76 O2 Sat by Pulse 98 97 Oximetry Medical Decision Making - Medical Decision Making 45-year-old female presented for nausea vomiting. Patient had labs, IV hydration, antiemetics. Patient does feel improved she's had no repeat emesis. She has tolerated oral intake. Patient found to be set dehydrated, hyperkalemia with urinary tract infection Rocephin was ordered K-Lyte was ordered. Patient be discharged in stable condition with close follow-up return parameters were discussed. - Lab Data Result diagrams: 08/04/20 06:24 08/04/20 06:24 Lab Results 08/04/20 08/04/20 08/04/20 Range/Units 06:24 06:24 06:24 WBC 13.3 H (3.8-10.6) k/uL RBC 5.30 (3.80-5.40) m/uL Hgb 15.5 (11.4-16.0) gm/dL Hct 46.8 H (34.0-46.0) % MCV 88.3 (80.0-100.0) fL MCH 29.2 (25.0-35.0) pg MCHC 33.1 (31.0-37.0) g/dL RDW 14.2 (11.5-15.5) % Plt Count 393 (150-450) k/uL Neutrophils % 76 % Lymphocytes % 16 % Monocytes % 5 % Eosinophils % 2 % Basophils % 0 % Neutrophils # 10.0 H (1.3-7.7) k/uL Lymphocytes # 2.2 (1.0-4.8) k/uL Monocytes # 0.6 (0-1.0) k/uL Eosinophils # 0.3 (0-0.7) k/uL Basophils # 0.1 (0-0.2) k/uL Sodium 138 (137-145) mmol/L Potassium 3.0 L (3.5-5.1) mmol/L Chloride 100 (98-107) mmol/L Carbon Dioxide 30 (22-30) mmol/L Anion Gap 8 mmol/L BUN 19 H (7-17) mg/dL Creatinine 0.95 (0.52-1.04) mg/dL Est GFR (CKD-EPI)AfAm 85 (>60 ml/min/1.73 sqM) Est GFR (CKD-EPI)NonAf 74 (>60 ml/min/1.73 sqM) Glucose 147 H (74-99) mg/dL Calcium 9.2 (8.4-10.2) mg/dL Total Bilirubin 0.9 (0.2-1.3) mg/dL AST 19 (14-36) U/L ALT 12 (4-34) U/L Alkaline Phosphatase 91 (38-126) U/L Total Protein 7.5 (6.3-8.2) g/dL Albumin 4.4 (3.5-5.0) g/dL Amylase 43 (30-110) U/L Lipase 167 (23-300) U/L Urine Color Yellow Urine Appearance Cloudy H (Clear) Urine pH 7.5 (5.0-8.0) Ur Specific [place] 1.033 (1.001-1.035) Urine Protein 2+ H (Negative) Urine Glucose (UA) Negative (Negative) Urine Ketones 1+ H (Negative) Urine Blood Negative (Negative) Urine Nitrite Negative (Negative) Urine Bilirubin Negative (Negative) Urine Urobilinogen 3.0 (<2.0) mg/dL Ur Leukocyte Esterase Large H (Negative) Urine RBC 23 H (0-5) /hpf Urine WBC 84 H (0-5) /hpf Ur Squamous Epith Cells 8 H (0-4) /hpf Urine Mucus Many H (None) /hpf Urine HCG, Qual (Not Detectd) 08/04/20 Range/Units 06:24 WBC (3.8-10.6) k/uL RBC (3.80-5.40) m/uL Hgb (11.4-16.0) gm/dL Hct (34.0-46.0) % MCV (80.0-100.0) fL MCH (25.0-35.0) pg MCHC (31.0-37.0) g/dL RDW (11.5-15.5) % Plt Count (150-450) k/uL Neutrophils % % Lymphocytes % % Monocytes % % Eosinophils % % Basophils % % Neutrophils # (1.3-7.7) k/uL Lymphocytes # (1.0-4.8) k/uL Monocytes # (0-1.0) k/uL Eosinophils # (0-0.7) k/uL Basophils # (0-0.2) k/uL Sodium (137-145) mmol/L Potassium (3.5-5.1) mmol/L Chloride (98-107) mmol/L Carbon Dioxide (22-30) mmol/L Anion Gap mmol/L BUN (7-17) mg/dL Creatinine (0.52-1.04) mg/dL Est GFR (CKD-EPI)AfAm (>60 ml/min/1.73 sqM) Est GFR (CKD-EPI)NonAf (>60 ml/min/1.73 sqM) Glucose (74-99) mg/dL Calcium (8.4-10.2) mg/dL Total Bilirubin (0.2-1.3) mg/dL AST (14-36) U/L ALT (4-34) U/L Alkaline Phosphatase (38-126) U/L Total Protein (6.3-8.2) g/dL Albumin (3.5-5.0) g/dL Amylase (30-110) U/L Lipase (23-300) U/L Urine Color Urine Appearance (Clear) Urine pH (5.0-8.0) Ur Specific [place] (1.001-1.035) Urine Protein (Negative) Urine Glucose (UA) (Negative) Urine Ketones (Negative) Urine Blood (Negative) Urine Nitrite (Negative) Urine Bilirubin (Negative) Urine Urobilinogen (<2.0) mg/dL Ur Leukocyte Esterase (Negative) Urine RBC (0-5) /hpf Urine WBC (0-5) /hpf Ur Squamous Epith Cells (0-4) /hpf Urine Mucus (None) /hpf Urine HCG, Qual Not Detected (Not Detectd) Disposition Clinical Impression: UTI (urinary tract infection), Hypokalemia, Gastroenteritis Disposition: HOME SELF-CARE Condition: Stable Instructions (If sedation given, give patient instructions): Acute Nausea and Vomiting (ED) Additional Instructions: Please return to the Emergency Department if symptoms worsen or any other concerns. Prescriptions: Cephalexin [Keflex] 500 mg PO Q8HR #21 cap Famotidine [Pepcid] 20 mg PO BID #28 tablet Ondansetron Odt [Zofran Odt] 4 mg PO Q6HR PRN #10 tab PRN Reason: Nausea Is patient prescribed a controlled substance at d/c from ED?: No Referrals: None,Stated [Primary Care Provider] - 1-2 days Time of Disposition: 08:11
[2020-08-04 06:41] LABS: Basophils # (A) 0.1 k/uL (0-0.2); Basophils % (A) 0 %; Eosinophils # (A) 0.3 k/uL (0-0.7); Eosinophils % (A) 2 %; HCT 46.8 % (34.0-46.0); HGB 15.5 gm/dL (11.4-16.0); Lymphocytes # (A) 2.2 k/uL (1.0-4.8); Lymphocytes % (A) 16 %; MCH 29.2 pg (25.0-35.0); MCHC 33.1 g/dL (31.0-37.0); MCV 88.3 fL (80.0-100.0); Mean Platelet Volume 6.7; Monocytes # (A) 0.6 k/uL (0-1.0); Monocytes % (A) 5 %; Neutrophils % (A) 76 %; Platelet Count 393 k/uL (150-450); RDW 14.2 % (11.5-15.5); WBC 13.3 k/uL (3.8-10.6)
[2020-08-04] MEDS ORDERED: HYDROmorphone 0.5 MG/0.5 ML SYRINGE IVP STA (06:45)
[2020-08-04 06:46] LABS: Appearance,Urine Cloudy (Clear); Bilirubin,Urine Negative (Negative); Blood,Urine Negative (Negative); Color,Urine Yellow; Glucose,Urine (UA) Negative (Negative); Ketones,Urine 1+ (Negative); Leukocyte Esterase,Urine Large (Negative); Mucus,Urine Many /hpf; Nitrite,Urine Negative (Negative); PH, Urine 7.5 (5.0-8.0); Protein,Urine 2+ (Negative); RBC,Urine 23 /hpf (0-5); Specific Gravity,Urine 1.033 (1.001-1.035); Squamous Epithelial Cell,Urine 8 /hpf (0-4); WBC,Urine 84 /hpf (0-5)
[2020-08-04 06:50] LABS: Albumin 4.4 g/dL (3.5-5.0); Calcium 9.2 mg/dL (8.4-10.2); Total Bilirubin 0.9 mg/dL (0.2-1.3); Total Protein 7.5 g/dL (6.3-8.2)
[2020-08-04] MEDS ORDERED: POTASSIUM BICARBONATE/CIT AC 20 MEQ TABLET.EFF PO ONE (07:32)
[2020-08-04] MEDS ORDERED: ONDANSETRON 4 MG/2 ML VIAL IVP STA (07:32)
[2020-08-04] MEDS ORDERED: cefTRIAXone IN SWFI 1,000 MG/10 ML SYRINGE IVP STA (07:32)
[2020-08-04 07:52] VITALS: BP 121/76; PULSE 56
== END 2020-08-04 08:44 | disposition home or self-care (01) ==
LOC: EC 06:04
DX: N39.0 Urinary tract infection, site not specified (principal); E87.6 Hypokalemia; K52.9 Noninfective gastroenteritis and colitis, unspecified; F31.9 Bipolar disorder, unspecified; F17.200 Nicotine dependence, unspecified, uncomplicated; Z79.899 Other long term (current) drug therapy; Z88.5 Allergy status to narcotic agent; Z88.6 Allergy status to analgesic agent
CPT/HCPCS: 36415; 80053; 82150; 83690; 85025; 81001; 81025; 87086; 99284; 96374; 96375 ×5; 96361 ×2; J1200; J2765; J2405; J0696; J1170

== ENCOUNTER 2020-08-12 13:01 | Emergency (ER) | payer MEDICARE, OTHER ==
[2020-08-12 13:16] VITALS: TEMP 97.8
[2020-08-12] MEDS ORDERED: KETOROLAC 15 MG/ML 1 ML VIAL IM STA (13:59)
--- NOTE | 2020-08-12 14:46 | XR ---
EXAMINATION TYPE: XR chest 2V DATE OF EXAM: 08/12/2020 CLINICAL HISTORY: Right-sided abdominal pain for 2 days. Back pain. TECHNIQUE: Frontal and lateral views of the chest are obtained. COMPARISON: 01/08/2019 chest radiograph FINDINGS: The cardiomediastinal silhouette is within normal limits for size. Pulmonary vasculature i s normal. There is no focal air space opacity, pleural effusion, or pneumothorax seen. The osseous st ructures are intact. IMPRESSION: No acute cardiopulmonary process.
[2020-08-12 15:04] LABS: Appearance,Urine Cloudy (Clear); Bacteria,Urine Rare /hpf; Bilirubin,Urine Negative (Negative); Blood,Urine Negative (Negative); Color,Urine Yellow; Glucose,Urine (UA) Negative (Negative); Ketones,Urine Trace (Negative); Leukocyte Esterase,Urine Negative (Negative); Mucus,Urine Occasional /hpf; Nitrite,Urine Negative (Negative); Protein,Urine Negative (Negative); RBC,Urine 1 /hpf (0-5); Specific Gravity,Urine 1.024 (1.001-1.035); Squamous Epithelial Cell,Urine 5 /hpf (0-4); Urobilinogen,Urine <2.0 mg/dL (<2.0); WBC,Urine 1 /hpf (0-5)
[2020-08-12] MEDS ORDERED: MORPHINE SULFATE 4 MG/ML SYRINGE IM STA (15:04)
--- NOTE | 2020-08-12 15:40 | ED ---
General Adult HPI - General Chief complaint: Urogenital Stated complaint: Back Pain Time Seen by Provider: 08/12/20 13:21 Source: patient, RN notes reviewed Mode of arrival: ambulatory Limitations: no limitations - History of Present Illness Initial comments: 45-year-old female without any significant past medical history presents to the emergency department for right upper back pain. Patient reports that she was sick with the UTI a couple weeks ago and was vomiting. Reports that during vomiting she felt a pain in her back. Patient states the pain has been persistent since that time. She reports that movement worsens this pain including movement of the arm. Reports it is tender to touch. Patient denies any numbness or tingling in the right arm. Patient denies any chest or abdominal pain. Denies radiating pain. Patient states it is a sharp pain with movement. Patient has no other complaints at this time including shortness of breath, chest pain, abdominal pain, nausea or vomiting, headache, or visual changes. - Related Data Home Medications Medication Instructions Recorded Confirmed Escitalopram [Lexapro] 20 mg PO HS 11/15/17 08/12/20 traZODone HCL 100 mg PO HS PRN 08/04/20 08/12/20 Previous Rx's Medication Instructions Recorded Cyclobenzaprine [Flexeril] 10 mg PO TID #14 tab 08/12/20 Ibuprofen [Motrin] 600 mg PO Q8HR PRN #20 tab 08/12/20 Allergies Allergy/AdvReac Type Severity Reaction Status Date / Time codeine phosphate AdvReac Chest Pain Verified 08/12/20 13:16 [From Tylenol-Codeine #3] tramadol AdvReac Itching Verified 08/12/20 13:16 Review of Systems ROS Statement: Those systems with pertinent positive or pertinent negative responses have been documented in the HPI. ROS Other: All systems not noted in ROS Statement are negative. Past Medical History Past Medical History: Osteoarthritis (OA) History of Any Multi-Drug Resistant Organisms: None Reported Date of last positivie culture/infection: 12/20/10 MDRO Source:: Unknown Past Surgical History: Section, Cholecystectomy, Joint Replacement Additional Past Surgical History / Comment(s): LEFT and right knee Past Psychological History: Bipolar, Depression Smoking Status: Current some day smoker Past Alcohol Use History: Occasional Past Drug Use History: None Reported General Exam Limitations: no limitations General appearance: alert, in no apparent distress Head exam: Present: atraumatic, normocephalic, normal inspection Eye exam: Present: normal appearance, PERRL, EOMI. Absent: scleral icterus, conjunctival injection, periorbital swelling ENT exam: Present: normal exam, mucous membranes moist Neck exam: Present: normal inspection, full ROM. Absent: tenderness, meningismus, lymphadenopathy Respiratory exam: Present: normal lung sounds bilaterally. Absent: respiratory distress, wheezes, rales, rhonchi, stridor Cardiovascular Exam: Present: regular rate, normal rhythm, normal heart sounds. Absent: systolic murmur, diastolic murmur, rubs, gallop, clicks GI/Abdominal exam: Present: soft, normal bowel sounds. Absent: distended, tenderness, guarding, rebound, rigid Extremities exam: Present: normal capillary refill (Radial pulse 2+ in upper 70s bilaterally.) Back exam: Present: paraspinal tenderness (Right-sided trapezius tenderness just medial to the shoulder blade.) Course Vital Signs 08/12/20 13:14 Temperature 97.8 F Pulse Rate 54 L Respiratory 20 Rate Blood Pressure 162/99 O2 Sat by Pulse 100 Oximetry EKG Findings - EKG Comments: EKG Findings:: Sinus bradycardia, ventricular rate 52, AL interval 150, QTC 388 Medical Decision Making - Medical Decision Making Vitals are stable. Physical exam reveals tenderness to the trapezius muscle. Patient has pain with rotation of the neck to the right as well as movement of the right arm. Pain is reproducible this patient does have tenderness within the trapezius muscle. Neurovascular status intact in the right upper extremity. Urinalysis is unremarkable. No CVA tenderness. EKG shows a sinus bradycardia without any ischemic changes. No radiating pain to the chest. Chest x-ray shows no acute process. Patient was given pain medications with improvement in pain. Patient can be discharged home with anti-inflammatories and a muscle relaxer. I did discuss not to take the muscle relaxer while driving and patient is agreeable to this. She will otherwise follow-up with primary care or orthopedics. I discussed this case with attending Dr. Cunningham who agrees with this assessment and treatment plan. - Lab Data Lab Results 08/12/20 Range/Units 14:22 Urine Color Yellow Urine Appearance Cloudy H (Clear) Urine pH 7.0 (5.0-8.0) Ur Specific [place] 1.024 (1.001-1.035) Urine Protein Negative (Negative) Urine Glucose (UA) Negative (Negative) Urine Ketones Trace H (Negative) Urine Blood Negative (Negative) Urine Nitrite Negative (Negative) Urine Bilirubin Negative (Negative) Urine Urobilinogen <2.0 (<2.0) mg/dL Ur Leukocyte Esterase Negative (Negative) Urine RBC 1 (0-5) /hpf Urine WBC 1 (0-5) /hpf Ur Squamous Epith Cells 5 H (0-4) /hpf Urine Bacteria Rare H (None) /hpf Urine Mucus Occasional H (None) /hpf Disposition Clinical Impression: Back pain Disposition: HOME SELF-CARE Condition: Good Instructions (If sedation given, give patient instructions): Back Pain (ED) Additional Instructions: Please take Motrin for pain. Take muscle relaxer but do not drive while taking this. Follow-up with your doctor in orthopedics. Return to the emergency room for any worsening symptoms. Prescriptions: Cyclobenzaprine [Flexeril] 10 mg PO TID #14 tab Ibuprofen [Motrin] 600 mg PO Q8HR PRN #20 tab PRN Reason: Pain Is patient prescribed a controlled substance at d/c from ED?: No [facility]errals[facility] [Primary Care Provider] - 1-2 days Neel Goins DO [Doctor of Osteopathic Medicine] - 1-2 days Time of Disposition: 15:38
[2020-08-12 15:50] VITALS: BP 130/82; PULSE 62; RESP 18
== END 2020-08-12 15:50 | disposition home or self-care (01) ==
LOC: EC 13:01
DX: M54.9 Dorsalgia, unspecified (principal); R00.1 Bradycardia, unspecified; F31.9 Bipolar disorder, unspecified; F17.200 Nicotine dependence, unspecified, uncomplicated; Z79.899 Other long term (current) drug therapy; Z88.5 Allergy status to narcotic agent; Z88.6 Allergy status to analgesic agent
CPT/HCPCS: 93005; 81001; 71046; 99284; 96372 ×2; J2270; J1885

== ENCOUNTER 2020-08-20 18:40 | Emergency (ER) | payer MEDICARE, OTHER ==
[2020-08-20] MEDS ORDERED: SODIUM CHLORIDE 0.9% 1,000 ML IV STA (19:12)
[2020-08-20] MEDS ORDERED: ONDANSETRON 4 MG/2 ML VIAL IVP STA (19:12)
--- NOTE | 2020-08-20 19:31 | ED ---
Nausea/Vomiting/Diarrhea HPI - General Chief complaint: Nausea/Vomiting/Diarrhea Stated complaint: Nausea/vomitting Time Seen by Provider: 08/20/20 19:02 Source: patient Mode of arrival: ambulatory Limitations: no limitations - History of Present Illness Initial comments: 45-year-old female patient presents to the emergency department today for evaluation of nausea and vomiting. Patient states that she's been unable to keep down any food or fluids since last evening. States she vomited all through the night and whenever she tried to eat or drink anything today. Patient states that she's been having severe heartburn with this. Some mild discomfort to her mid sternal region. Denies any radiation of the pain through to her back. Denies fevers but states she has been chilled and has had sweats. Denies any constipation or diarrhea. Patient states that she was diagnosed with the UTI on August 04 and given antibiotics and nausea medication. States she ran out of the nausea medication yesterday. States she still feels like she has a UTI. She also reports that about a week ago she thought she was starting her period so she put in a tampon. States she did have sexual intercourse but she is unsure she took the tampon out. She states she did have some abnormal discharge yesterday that smelled bad. She states that her last period was light and lasted only 4 days. This is unusual for her. She has had cholecystectomy in the past. No other abdominal surgeries. Today patient has been taking tums and tried a dramamine without relief of symptoms. Patient denies any recent rash, cough, shortness of breath, diarrhea, constipation, back pain, numbness, tingling, dizziness, weakness, headache, visual changes, or any other complaints. - Related Data Home Medications Medication Instructions Recorded Confirmed Escitalopram [Lexapro] 20 mg PO HS 11/15/17 08/20/20 traZODone HCL 100 mg PO HS PRN 08/04/20 08/20/20 Albuterol Sulfate [Ventolin HFA] 1 - 2 puff INHALATION RT-QID PRN 08/20/20 08/20/20 Cyclobenzaprine [Flexeril] 10 mg PO TID PRN 08/20/20 08/20/20 Famotidine [Pepcid] 20 mg PO DAILY PRN 08/20/20 08/20/20 dimenhyDRINATE [Dimenhydrinate] 50 mg PO DAILY PRN 08/20/20 08/20/20 Previous Rx's Medication Instructions Recorded Ibuprofen [Motrin] 600 mg PO Q8HR PRN #20 tab 08/12/20 Azithromycin [Zithromax] 1,000 mg PO ONCE 1 Days #2 tab 08/20/20 Fluconazole [Diflucan] 150 mg PO ONCE #1 tab 08/20/20 Ondansetron [Zofran ODT] 4 mg PO Q8HR PRN #10 tab 08/20/20 Allergies Allergy/AdvReac Type Severity Reaction Status Date / Time codeine phosphate AdvReac Chest Pain Verified 08/20/20 20:21 [From Tylenol-Codeine #3] tramadol AdvReac Itching Verified 08/20/20 20:21 Review of Systems ROS Statement: Those systems with pertinent positive or pertinent negative responses have been documented in the HPI. ROS Other: All systems not noted in ROS Statement are negative. Past Medical History Past Medical History: Osteoarthritis (OA) History of Any Multi-Drug Resistant Organisms: None Reported Date of last positivie culture/infection: 12/20/10 MDRO Source:: Unknown Past Surgical History: Section, Cholecystectomy, Joint Replacement Additional Past Surgical History / Comment(s): LEFT and right knee Past Psychological History: Bipolar, Depression Smoking Status: Current some day smoker Past Alcohol Use History: Occasional Past Drug Use History: None Reported General Exam Limitations: no limitations General appearance: alert, in no apparent distress, other (Physical well- developed, well-nourished adult female patient in no acute distress. Vital signs upon presentation are temperature 98.4F, pulse 111, respirations 20, blood pressure 155/90, pulse ox 98% on room air.) Eye exam: Present: normal appearance, PERRL, EOMI. Absent: scleral icterus, conjunctival injection, periorbital swelling ENT exam: Present: normal exam, normal oropharynx, mucous membranes moist Respiratory exam: Present: normal lung sounds bilaterally. Absent: respiratory distress, wheezes, rales, rhonchi, stridor Cardiovascular Exam: Present: regular rate, normal rhythm, normal heart sounds. Absent: systolic murmur, diastolic murmur, rubs, gallop, clicks GI/Abdominal exam: Present: soft, normal bowel sounds. Absent: distended, tenderness, guarding, rebound, rigid External exam: Present: normal external exam Speculum exam: Present: cervical discharge (White, frothy). Absent: erythema By manual exam: Present: normal by manual exam. Absent: cervical motion tenderness Neurological exam: Present: alert, oriented X3, CN II-XII intact Psychiatric exam: Present: normal affect, normal mood Skin exam: Present: warm, dry, intact, normal color. Absent: rash Course Vital Signs 08/20/20 08/20/20 08/20/20 18:43 20:00 21:03 Temperature 98.4 F Pulse Rate 111 H 73 79 Respiratory 20 19 20 Rate Blood Pressure 155/90 127/80 124/77 O2 Sat by Pulse 98 100 100 Oximetry 08/20/20 08/20/20 21:58 22:21 Temperature 98.9 F Pulse Rate 64 85 Respiratory 19 18 Rate Blood Pressure 127/80 129/91 O2 Sat by Pulse 99 100 Oximetry Medical Decision Making - Medical Decision Making 45-year-old female patient presents to the emergency department today for evaluation of nausea and dysuria. Patient also reports dyspareunia. States he was recently treated for UTI completed prescription for Keflex though she is still having symptoms. States she has having some abnormal vaginal discharge. Physical examination did reveal a soft nontender abdomen. Labs reviewed and are relatively unremarkable. No sign of current UTI. There was positive nitrite however patient did take Pyridium prior to arrival, so this is felt to be a false positive. HCG negative. Did do a pelvic examination which showed right frothy discharge. Patient was treated for STI is. She did have a couple of medications here that could prolong her QT so we did hold azithromycin until tomorrow. Cultures were sent. She did give her a dose of Diflucan for possible yeast infection. She'll be discharged pop with her primary care physician and double end tenoner setter for recheck as soon as possible. Return parameters were discussed in detail. She verbalizes understanding and agrees with this plan. - Lab Data Result diagrams: 08/20/20 19:45 08/20/20 19:45 Lab Results 08/20/20 08/20/20 08/20/20 Range/Units 19:45 19:45 19:45 WBC 9.2 (3.8-10.6) k/uL RBC 5.37 (3.80-5.40) m/uL Hgb 16.0 (11.4-16.0) gm/dL Hct 49.0 H (34.0-46.0) % MCV 91.2 (80.0-100.0) fL MCH 29.8 (25.0-35.0) pg MCHC 32.7 (31.0-37.0) g/dL RDW 13.5 (11.5-15.5) % Plt Count 285 (150-450) k/uL Neutrophils % 68 % Lymphocytes % 22 % Monocytes % 6 % Eosinophils % 2 % Basophils % 1 % Neutrophils # 6.2 (1.3-7.7) k/uL Lymphocytes # 2.0 (1.0-4.8) k/uL Monocytes # 0.6 (0-1.0) k/uL Eosinophils # 0.2 (0-0.7) k/uL Basophils # 0.1 (0-0.2) k/uL Sodium (137-145) mmol/L Potassium (3.5-5.1) mmol/L Chloride (98-107) mmol/L Carbon Dioxide (22-30) mmol/L Anion Gap mmol/L BUN (7-17) mg/dL Creatinine (0.52-1.04) mg/dL Est GFR (CKD-EPI)AfAm (>60 ml/min/1.73 sqM) Est GFR (CKD-EPI)NonAf (>60 ml/min/1.73 sqM) Glucose (74-99) mg/dL Calcium (8.4-10.2) mg/dL Total Bilirubin (0.2-1.3) mg/dL AST (14-36) U/L ALT (4-34) U/L Alkaline Phosphatase (38-126) U/L Troponin I (0.000-0.034) ng/mL Total Protein (6.3-8.2) g/dL Albumin (3.5-5.0) g/dL Lipase (23-300) U/L Urine Color Dark Brown Urine Appearance Turbid H (Clear) Urine pH 6.0 (5.0-8.0) Ur Specific [place] 1.030 (1.001-1.035) Urine Protein 2+ H (Negative) Urine Glucose (UA) Negative (Negative) Urine Ketones Negative (Negative) Urine Blood Negative (Negative) Urine Nitrite Positive H (Negative) Urine Bilirubin 2+ H (Negative) Urine Urobilinogen 6.0 (<2.0) mg/dL Ur Leukocyte Esterase Negative (Negative) Urine RBC 4 (0-5) /hpf Urine WBC 6 H (0-5) /hpf Ur Squamous Epith Cells 60 H (0-4) /hpf Urine Bacteria Few H (None) /hpf Hyaline Casts 16 H (0-2) /lpf Urine Mucus Many H (None) /hpf Urine Yeast (Budding) Few H (None) /hpf Urine HCG, Qual Not Detected (Not Detectd) Trichomonas Ag (Rapid) (Negative) 08/20/20 08/20/20 08/20/20 Range/Units 19:45 19:45 21:01 WBC (3.8-10.6) k/uL RBC (3.80-5.40) m/uL Hgb (11.4-16.0) gm/dL Hct (34.0-46.0) % MCV (80.0-100.0) fL MCH (25.0-35.0) pg MCHC (31.0-37.0) g/dL RDW (11.5-15.5) % Plt Count (150-450) k/uL Neutrophils % % Lymphocytes % % Monocytes % % Eosinophils % % Basophils % % Neutrophils # (1.3-7.7) k/uL Lymphocytes # (1.0-4.8) k/uL Monocytes # (0-1.0) k/uL Eosinophils # (0-0.7) k/uL Basophils # (0-0.2) k/uL Sodium 137 (137-145) mmol/L Potassium 3.8 (3.5-5.1) mmol/L Chloride 102 (98-107) mmol/L Carbon Dioxide 26 (22-30) mmol/L Anion Gap 9 mmol/L BUN 16 (7-17) mg/dL Creatinine 0.88 (0.52-1.04) mg/dL Est GFR (CKD-EPI)AfAm >90 (>60 ml/min/1.73 sqM) Est GFR (CKD-EPI)NonAf 81 (>60 ml/min/1.73 sqM) Glucose 104 H (74-99) mg/dL Calcium 9.6 (8.4-10.2) mg/dL Total Bilirubin 0.9 (0.2-1.3) mg/dL AST 25 (14-36) U/L ALT 16 (4-34) U/L Alkaline Phosphatase 74 (38-126) U/L Troponin I <0.012 (0.000-0.034) ng/mL Total Protein 7.5 (6.3-8.2) g/dL Albumin 4.4 (3.5-5.0) g/dL Lipase 47 (23-300) U/L Urine Color Urine Appearance (Clear) Urine pH (5.0-8.0) Ur Specific [place] (1.001-1.035) Urine Protein (Negative) Urine Glucose (UA) (Negative) Urine Ketones (Negative) Urine Blood (Negative) Urine Nitrite (Negative) Urine Bilirubin (Negative) Urine Urobilinogen (<2.0) mg/dL Ur Leukocyte Esterase (Negative) Urine RBC (0-5) /hpf Urine WBC (0-5) /hpf Ur Squamous Epith Cells (0-4) /hpf Urine Bacteria (None) /hpf Hyaline Casts (0-2) /lpf Urine Mucus (None) /hpf Urine Yeast (Budding) (None) /hpf Urine HCG, Qual (Not Detectd) Trichomonas Ag (Rapid) Negative (Negative) - EKG Data -: EKG Interpreted by Me EKG Comments: EKG obtained at 2011 shows normal sinus rhythm with a ventricular rate of 75, AL interval 1:30, QRS duration 76, QT 370, QTC 413. Inverted T-waves in biphasic QRS in Lead III. No evidence of ST elevation or depression. Disposition Clinical Impression: Nausea & vomiting, Dysuria, Dyspareunia Disposition: HOME SELF-CARE Condition: Good Instructions (If sedation given, give patient instructions): Sexually Transmitted Diseases (ED), Acute Nausea and Vomiting (ED) Additional Instructions: Fill prescriptions. Take all of the azithromycin tablets at once tomorrow. Take the diflucan tablet in three days. Use zofran as needed for nausea relief. Take Pepcid daily. Follow-up with your primary care physician for recheck in 1-2 days. Follow-up with her double end tenoner setter as soon as possible. Return to the emergency department immediately for any new, worsening, or concerning symptoms. Prescriptions: Fluconazole [Diflucan] 150 mg PO ONCE #1 tab Azithromycin [Zithromax] 1,000 mg PO ONCE 1 Days #2 tab Ondansetron [Zofran ODT] 4 mg PO Q8HR PRN #10 tab PRN Reason: Nausea Is patient prescribed a controlled substance at d/c from ED?: No Referrals: [facility] [Primary Care Provider] - 1-2 days
[2020-08-20 20:13] LABS: Basophils # (A) 0.1 k/uL (0-0.2); Basophils % (A) 1 %; Eosinophils # (A) 0.2 k/uL (0-0.7); Eosinophils % (A) 2 %; Lymphocytes % (A) 22 %; MCH 29.8 pg (25.0-35.0); MCHC 32.7 g/dL (31.0-37.0); MCV 91.2 fL (80.0-100.0); Mean Platelet Volume 6.8; Monocytes # (A) 0.6 k/uL (0-1.0); Monocytes % (A) 6 %; Neutrophils # (A) 6.2 k/uL (1.3-7.7); Neutrophils % (A) 68 %; Platelet Count 285 k/uL (150-450); RBC 5.37 m/uL (3.80-5.40); RDW 13.5 % (11.5-15.5); WBC 9.2 k/uL (3.8-10.6)
[2020-08-20 20:17] LABS: ALT 16 U/L (4-34); AST 25 U/L (14-36); African American GFR (CKD) >90 (>60 ml/min/1.73 sqM); Albumin 4.4 g/dL (3.5-5.0); Alkaline Phosphatase 74 U/L (38-126); Anion Gap 9 mmol/L; Blood Urea Nitrogen 16 mg/dL (7-17); Calcium 9.6 mg/dL (8.4-10.2); Carbon Dioxide 26 mmol/L (22-30); Chloride 102 mmol/L (98-107); Glucose 104 mg/dL (74-99); Non-African American GFR(CKD) 81 (>60 ml/min/1.73 sqM); Potassium 3.8 mmol/L (3.5-5.1); Sodium 137 mmol/L (137-145); Total Bilirubin 0.9 mg/dL (0.2-1.3); Total Protein 7.5 g/dL (6.3-8.2)
[2020-08-20 20:26] LABS: Appearance,Urine Turbid (Clear); Bacteria,Urine Few /hpf; Bilirubin,Urine 2+ (Negative); Blood,Urine Negative (Negative); Budding Yeast,Urine Few /hpf; Color,Urine Dark Brown; Glucose,Urine (UA) Negative (Negative); Hyaline Casts,Urine 16 /lpf (0-2); Ketones,Urine Negative (Negative); Leukocyte Esterase,Urine Negative (Negative); Mucus,Urine Many /hpf; Nitrite,Urine Positive (Negative); Protein,Urine 2+ (Negative); RBC,Urine 4 /hpf (0-5); Squamous Epithelial Cell,Urine 60 /hpf (0-4); WBC,Urine 6 /hpf (0-5)
[2020-08-20] MEDS ORDERED: FLUCONAZOLE 150 MG TAB PO STA (21:22)
[2020-08-20] MEDS ORDERED: cefTRIAXone IN SWFI 1,000 MG/10 ML SYRINGE IVP STA (21:22)
[2020-08-20] MEDS ORDERED: metroNIDAZOLE 500 MG TAB PO STA (21:43)
[2020-08-20] MEDS ORDERED: AZITHROMYCIN 500 MG TAB PO STA (21:43)
[2020-08-20] MEDS ORDERED: cefTRIAXone 250 MG VIAL IM STA (21:43)
[2020-08-20 22:21] VITALS: BP 129/91; PULSE 85; RESP 18; TEMP 98.9
== END 2020-08-20 22:21 | disposition home or self-care (01) ==
LOC: EC 18:40
DX: R11.2 Nausea with vomiting, unspecified (principal); R30.0 Dysuria; N94.10 Unspecified dyspareunia; F31.9 Bipolar disorder, unspecified; F17.200 Nicotine dependence, unspecified, uncomplicated; Z90.49 Acquired absence of other specified parts of digestive tract; Z79.899 Other long term (current) drug therapy; Z96.653 Presence of artificial knee joint, bilateral; Z88.5 Allergy status to narcotic agent; Z88.6 Allergy status to analgesic agent
CPT/HCPCS: 36415; 93005; 80053; 83690; 84484; 85025; 81001; 81025; 87808; 87491; 87591; 87070; 99284; 96374; 96372; J2405; J0696

== ENCOUNTER 2021-02-17 15:19 | Emergency (ER) | payer MEDICARE, OTHER ==
[2021-02-17 15:30] VITALS: BP 152/98; PULSE 85; RESP 18; TEMP 98.4
--- NOTE | 2021-02-17 16:03 | ED ---
General Adult HPI - General Chief complaint: Skin/Abscess/Foreign Body Stated complaint: Rash on neck Time Seen by Provider: 02/17/21 15:36 Source: patient, RN notes reviewed Mode of arrival: ambulatory Limitations: no limitations - History of Present Illness Initial comments: 45-year-old female presents emergency Department chief complaint rash. Patient states started a couple weeks ago after some new clothing, blanket. Patient states it continues to itch, she's been scratching at the area. Denies any fevers or chills noted with a breathing no other complaints. - Related Data Home Medications Medication Instructions Recorded Confirmed Escitalopram [Lexapro] 20 mg PO HS 11/15/17 08/20/20 traZODone HCL 100 mg PO HS PRN 08/04/20 08/20/20 Albuterol Sulfate [Ventolin HFA] 1 - 2 puff INHALATION RT-QID PRN 08/20/20 08/20/20 Cyclobenzaprine [Flexeril] 10 mg PO TID PRN 08/20/20 08/20/20 Famotidine [Pepcid] 20 mg PO DAILY PRN 08/20/20 08/20/20 dimenhyDRINATE [Dimenhydrinate] 50 mg PO DAILY PRN 08/20/20 08/20/20 Previous Rx's Medication Instructions Recorded Ibuprofen [Motrin] 600 mg PO Q8HR PRN #20 tab 08/12/20 Azithromycin [Zithromax] 1,000 mg PO ONCE 1 Days #2 tab 08/20/20 Fluconazole [Diflucan] 150 mg PO ONCE #1 tab 08/20/20 Ondansetron [Zofran ODT] 4 mg PO Q8HR PRN #10 tab 08/20/20 Triamcinolone 0.1% Cream [Kenalog 1 applicatio TOPICAL BID #30 gram 02/17/21 0.1% Cream] hydrOXYzine HCL [Atarax] 25 mg PO TID PRN #15 tab 02/17/21 predniSONE 50 mg PO DAILY #5 tab 02/17/21 Allergies Allergy/AdvReac Type Severity Reaction Status Date / Time codeine phosphate AdvReac Chest Pain Verified 02/17/21 15:31 [From Tylenol-Codeine #3] tramadol AdvReac Itching Verified 02/17/21 15:31 Review of Systems ROS Statement: Those systems with pertinent positive or pertinent negative responses have been documented in the HPI. ROS Other: All systems not noted in ROS Statement are negative. Past Medical History Past Medical History: Osteoarthritis (OA) History of Any Multi-Drug Resistant Organisms: None Reported Date of last positivie culture/infection: 12/20/10 MDRO Source:: Unknown Past Surgical History: Section, Cholecystectomy, Joint Replacement Additional Past Surgical History / Comment(s): LEFT and right knee Past Psychological History: Bipolar, Depression Smoking Status: Current some day smoker Past Alcohol Use History: Occasional Past Drug Use History: None Reported General Exam Limitations: no limitations General appearance: alert, in no apparent distress Head exam: Present: atraumatic, normocephalic, normal inspection Eye exam: Present: normal appearance, PERRL, EOMI. Absent: scleral icterus, conjunctival injection, periorbital swelling ENT exam: Present: mucous membranes moist. Absent: normal exam (Patchy dry skin, mild erythema around lateral and posterior neck region) Neck exam: Present: normal inspection, full ROM. Absent: tenderness, meningismus, lymphadenopathy Respiratory exam: Present: normal lung sounds bilaterally. Absent: respiratory distress, wheezes, rales, rhonchi, stridor Cardiovascular Exam: Present: regular rate, normal rhythm, normal heart sounds. Absent: systolic murmur, diastolic murmur, rubs, gallop, clicks Course Vital Signs 02/17/21 15:27 Temperature 98.4 F Pulse Rate 85 Respiratory 18 Rate Blood Pressure 152/98 O2 Sat by Pulse 98 Oximetry Medical Decision Making - Medical Decision Making Patient has dermatitis of the night will be placed on steroid cream provided Atarax for itching and return parameters were discussed. Disposition Clinical Impression: Dermatitis Disposition: HOME SELF-CARE Condition: Stable Instructions (If sedation given, give patient instructions): Dermatitis (ED) Additional Instructions: Please return to the Emergency Department if symptoms worsen or any other concerns. Prescriptions: hydrOXYzine HCL [Atarax] 25 mg PO TID PRN #15 tab PRN Reason: Itching Triamcinolone 0.1% Cream [Kenalog 0.1% Cream] 1 applicatio TOPICAL BID #30 gram predniSONE 50 mg PO DAILY #5 tab Is patient prescribed a controlled substance at d/c from ED?: No Referrals: [facility] [Primary Care Provider] - 1-2 days Time of Disposition: 16:03
== END 2021-02-17 16:13 | disposition home or self-care (01) ==
LOC: EC 15:19
DX: L30.9 Dermatitis, unspecified (principal); M19.90 Unspecified osteoarthritis, unspecified site; F32.9 Major depressive disorder, single episode, unspecified; F17.200 Nicotine dependence, unspecified, uncomplicated; Z79.899 Other long term (current) drug therapy
CPT/HCPCS: 99282

== ENCOUNTER 2021-05-02 00:23 | Emergency (ER) | payer MEDICARE, OTHER ==
[2021-05-02 00:33] VITALS: BP 121/74; PULSE 89; RESP 20; TEMP 98
[2021-05-02] MEDS ORDERED: LIDOCAINE 1% INJ 10MG/ML (20 ML MDV) SQ ONE (00:40)
[2021-05-02] MEDS ORDERED: DIPH,PERTUS(ACELL)TETVAC-LF 0.5 ML VIAL IM ONE (00:40)
[2021-05-02] MEDS ORDERED: SULFAMETHOX-TMP 800-160MG 1 EACH TAB PO STA (00:40)
--- NOTE | 2021-05-02 00:46 | ED ---
Skin/Abscess/FB HPI - General Chief complaint: Skin/Abscess/Foreign Body Stated complaint: Abscess Time Seen by Provider: 05/02/21 00:36 Source: patient Mode of arrival: ambulatory Limitations: no limitations - History of Present Illness Initial comments: This patient is a 45-year-old woman who presents to have evaluation because she is concerned about a possible boil behind her left ear. The patient states that she had applied some hair dye 7-10 days ago which caused some irritation of the skin around her hairline and scalp. She had been applying [id number] products, and then noted that over the past day to 2 she has developed swelling and tenderness behind her left ear. She states that she showed her roommate who told her that it looked like a boil was developing there. Patient is not having any systemic symptoms. No fever or chills. No chest pain or palpitations. No change in hearing. No drainage from the ear. MD complaint: abscess/boil -: days(s) Tetanus Up to Date: no Severity: moderate Quality: aching Consistency: constant Improves with: none Worsens with: none Context: none - Related Data Home Medications Medication Instructions Recorded Confirmed Escitalopram [Lexapro] 20 mg PO HS 11/15/17 08/20/20 traZODone HCL 100 mg PO HS PRN 08/04/20 08/20/20 Albuterol Sulfate [Ventolin HFA] 1 - 2 puff INHALATION RT-QID PRN 08/20/20 08/20/20 Cyclobenzaprine [Flexeril] 10 mg PO TID PRN 08/20/20 08/20/20 Famotidine [Pepcid] 20 mg PO DAILY PRN 08/20/20 08/20/20 dimenhyDRINATE [Dimenhydrinate] 50 mg PO DAILY PRN 08/20/20 08/20/20 Previous Rx's Medication Instructions Recorded Ibuprofen [Motrin] 600 mg PO Q8HR PRN #20 tab 08/12/20 Azithromycin [Zithromax] 1,000 mg PO ONCE 1 Days #2 tab 08/20/20 Fluconazole [Diflucan] 150 mg PO ONCE #1 tab 08/20/20 Ondansetron [Zofran ODT] 4 mg PO Q8HR PRN #10 tab 08/20/20 Ibuprofen [Motrin] 600 mg PO Q8HR PRN #30 tab 02/17/21 Triamcinolone 0.1% Cream [Kenalog 1 applicatio TOPICAL BID #30 gram 02/17/21 0.1% Cream] hydrOXYzine HCL [Atarax] 25 mg PO TID PRN #15 tab 02/17/21 predniSONE 50 mg PO DAILY #5 tab 02/17/21 Sulfamethox-Tmp 800-160Mg [Bactrim 1 each PO Q12HR #14 tab 05/02/21 Ds] Allergies Allergy/AdvReac Type Severity Reaction Status Date / Time codeine phosphate AdvReac Chest Pain Verified 05/02/21 00:33 [From Tylenol-Codeine #3] tramadol AdvReac Itching Verified 05/02/21 00:33 Review of Systems ROS Statement: Those systems with pertinent positive or pertinent negative responses have been documented in the HPI. ROS Other: All systems not noted in ROS Statement are negative. Constitutional: Denies: fever, chills Respiratory: Denies: cough, dyspnea Cardiovascular: Denies: chest pain, palpitations Skin: Reports: as per HPI, lesions Neurological: Denies: headache Past Medical History Past Medical History: Osteoarthritis (OA) Additional Past Medical History / Comment(s): COVID 09/17 History of Any Multi-Drug Resistant Organisms: None Reported Date of last positivie culture/infection: 12/20/10 MDRO Source:: Unknown Past Surgical History: Section, Cholecystectomy, Joint Replacement Additional Past Surgical History / Comment(s): LEFT and right knee Past Psychological History: Bipolar, Depression Smoking Status: Current some day smoker Past Alcohol Use History: Occasional Past Drug Use History: None Reported General Exam Limitations: no limitations General appearance: alert, in no apparent distress Head exam: Present: atraumatic, normocephalic Eye exam: Present: normal appearance Neck exam: Present: normal inspection, full ROM, lymphadenopathy. Absent: tenderness Skin exam: Present: warm, dry, other (There is an approximately 3-4 cm diameter area of erythema and warmth consistent with cellulitis centered over the fluctuant area which is coming to a point). Absent: rash Course Vital Signs 05/02/21 00:28 Temperature 98.0 F Pulse Rate 89 Respiratory 20 Rate Blood Pressure 121/74 O2 Sat by Pulse 99 Oximetry Procedures - Incision & Drainage Consent Obtained: verbal consent Site: scalp Anesthetic Used: lidocaine 1% I&D Cleaning Method: Chloroprep Sterile Field Used?: Yes Scalpel Used: #11 Needle Aspiration Performed?: Yes Irrigation Performed?: Yes I&D Drainage Obtained: Pus Patient Tolerated Procedure: well, no complications Disposition Clinical Impression: Epidermal inclusion cyst Disposition: HOME SELF-CARE Condition: Good Instructions (If sedation given, give patient instructions): Abscess Incision and Drainage (DC) Prescriptions: Sulfamethox-Tmp 800-160Mg [Bactrim Ds] 1 each PO Q12HR #14 tab Is patient prescribed a controlled substance at d/c from ED?: No Referrals: [facility] [Primary Care Provider] - 1-2 days
[2021-05-02] MEDS ORDERED: HYDROcodone/APAP 5-325MG 1 EACH TAB PO STA (01:12)
== END 2021-05-02 01:20 | disposition home or self-care (01) ==
LOC: EC 00:23
DX: L72.0 Epidermal cyst (principal); F17.200 Nicotine dependence, unspecified, uncomplicated; Z88.5 Allergy status to narcotic agent; Z23 Encounter for immunization; Z88.6 Allergy status to analgesic agent
CPT/HCPCS: 90715; 99282; 10060; 90471; J2001

== ENCOUNTER 2022-05-08 13:08 | Emergency (ER) | payer MEDICARE, OTHER ==
[2022-05-08 13:12] VITALS: RESP 18
--- NOTE | 2022-05-08 13:25 | ED ---
General Adult HPI - General Chief complaint: Chest Pain Stated complaint: Chest pain,Sore throat Time Seen by Provider: 05/08/22 13:15 Source: patient, RN notes reviewed, old records reviewed Mode of arrival: ambulatory Limitations: no limitations - History of Present Illness Initial comments: This is a 46-year-old female presents emergency Department no significant past medical history. Patient states she does smoke. Patient states the last couple of days she's been coughing taste coughing up some sputum. Patient states she was in the heat today and was very hot and she was coughing she started having chest pain with deep breathing and coughing. Patient states is very hot outside and breathing in a very hot air seems to make it worse. Patient states there is pain in her back as well and again she states it's worse with deep breathing and coughing. Patient states palpating her upper back bilaterally does cause some pain. Patient denies any fever chills. Patient states she's had COVID in February. Patient denies any recent fever or chills. Patient denies any abdominal pain - Related Data Home Medications Medication Instructions Recorded Confirmed Vitamin B Complex 1 cap PO DAILY 05/08/22 05/08/22 Previous Rx's Medication Instructions Recorded Albuterol Inhaler [Ventolin Hfa 1 - 2 puff INHALATION Q6HR PRN #2 05/08/22 Inhaler] each Azithromycin [Zithromax Tri-Fermín (3 500 mg PO DAILY 3 Days #3 tab 05/08/22 tabs)] predniSONE [Deltasone] 40 mg PO DAILY #8 tab 05/08/22 Allergies Allergy/AdvReac Type Severity Reaction Status Date / Time amoxicillin Allergy Rash/Hives Verified 05/08/22 14:21 Penicillins Allergy Rash/Hives Verified 05/08/22 14:21 sulfamethoxazole Allergy Rash/Hives Verified 05/08/22 14:21 [From Bactrim] tramadol Allergy Itching Verified 05/08/22 14:21 trimethoprim [From Bactrim] Allergy Rash/Hives Verified 05/08/22 14:21 codeine phosphate AdvReac Chest Pain Verified 05/08/22 14:21 [From Tylenol-Codeine #3] Review of Systems ROS Statement: Those systems with pertinent positive or pertinent negative responses have been documented in the HPI. ROS Other: All systems not noted in ROS Statement are negative. Past Medical History Past Medical History: Osteoarthritis (OA) Additional Past Medical History / Comment(s): COVID 09/17 History of Any Multi-Drug Resistant Organisms: None Reported Date of last positivie culture/infection: 12/20/10 MDRO Source:: Unknown Past Surgical History: Section, Cholecystectomy, Joint Replacement Additional Past Surgical History / Comment(s): LEFT and right knee Past Psychological History: Bipolar, Depression Smoking Status: Current some day smoker Past Alcohol Use History: Occasional Past Drug Use History: None Reported General Exam - General Exam Comments Initial Comments: GENERAL: Patient is well-developed and well-nourished. Patient is nontoxic and well- hydrated and is in mild distress. ENT: Neck is soft and supple. No significant lymphadenopathy is noted. Oropharynx is clear. Moist mucous membranes. Neck has full range of motion without eliciting any pain. EYES: The sclera were anicteric and conjunctiva were pink and moist. Extraocular movements were intact and pupils were equal round and reactive to light. Eyelids were unremarkable. PULMONARY: Patient has expiratory wheezing CARDIOVASCULAR: There is a regular rate and rhythm without any murmurs gallops or rubs. ABDOMEN: Soft and nontender with normal bowel sounds. SKIN: Skin is clear with no lesions or rashes and otherwise unremarkable. NEUROLOGIC: Patient has reproducible back pain just medial to the scapula.. MUSCULOSKELETAL: Normal extremities with adequate strength and full range of motion. No lower extremity swelling or edema. No calf tenderness. LYMPHATICS: No significant lymphadenopathy is noted PSYCHIATRIC: Normal psychiatric evaluation. Limitations: no limitations Course Vital Signs 05/08/22 05/08/22 05/08/22 13:10 13:25 15:03 Temperature 97.0 F L Pulse Rate 97 93 77 Respiratory 18 18 Rate Blood Pressure 141/85 116/75 O2 Sat by Pulse 97 96 Oximetry 05/08/22 05/08/22 15:14 15:19 Temperature Pulse Rate 72 80 Respiratory 18 Rate Blood Pressure 117/68 O2 Sat by Pulse 96 Oximetry Medical Decision Making - Medical Decision Making EKG shows sinus rhythm with occasional PAC at 88 bpm SD interval is 141 QRSs 89 QT interval 340 QTC is 385. Patient's EKG shows no ST segment elevation or depression. Patient received a breathing treatment emergency department stating that made her feel much better. Patient states taking a deep breath was much easier. - Lab Data Lab Results 05/08/22 Range/Units 13:23 Coronavirus (PCR) Not Detected (Not Detectd) Disposition Clinical Impression: Bronchitis with bronchospasm Disposition: HOME SELF-CARE Condition: Good Instructions (If sedation given, give patient instructions): Chest Pain (ED), Bronchospasm (ED) Prescriptions: predniSONE [Deltasone] 40 mg PO DAILY #8 tab Albuterol Inhaler [Ventolin Hfa Inhaler] 1 - 2 puff INHALATION Q6HR PRN #2 each PRN Reason: Difficulty breathing Azithromycin [Zithromax Tri-Fermín (3 tabs)] 500 mg PO DAILY 3 Days #3 tab Is patient prescribed a controlled substance at d/c from ED?: No Referrals: None,Stated [Primary Care Provider] - 1-2 days Time of Disposition: 15:33
--- NOTE | 2022-05-08 13:45 | XR ---
EXAMINATION TYPE: XR chest 2V DATE OF EXAM: 05/08/2022 COMPARISON: Chest x-ray August 12, 2020 HISTORY: Cough and difficulty in breathing. Chest pain. TECHNIQUE: Frontal and lateral views of the chest are obtained. FINDINGS: There is no suspicious focal air space opacity, pleural effusion, or pneumothorax seen. T he cardiac silhouette size remains within normal limits. The osseous structures are intact. Cholecy stectomy clips are noted. IMPRESSION: No acute process. No significant change from prior.
[2022-05-08] MEDS ORDERED: IPRATROPIUM-ALBUTEROL 3 ML NEB INHALATION STA (14:50)
[2022-05-08 15:20] VITALS: BP 117/68
[2022-05-08 15:45] VITALS: PULSE 82; TEMP 98.8
== END 2022-05-08 15:41 | disposition home or self-care (01) ==
LOC: EC 13:08
DX: J40 Bronchitis, not specified as acute or chronic (principal); F17.200 Nicotine dependence, unspecified, uncomplicated; Z88.0 Allergy status to penicillin; Z88.5 Allergy status to narcotic agent; Z88.2 Allergy status to sulfonamides; Z88.6 Allergy status to analgesic agent
CPT/HCPCS: 71046; 87635; 93005; 94640; 99285

== ENCOUNTER 2022-10-15 16:24 | Emergency (ER) | payer MEDICARE, OTHER ==
[2022-10-15 16:28] VITALS: TEMP 97.9
[2022-10-15] MEDS ORDERED: diphenhydrAMINE 50 MG/ML 1 ML VIAL IM STA (16:44)
[2022-10-15] MEDS ORDERED: FAMOTIDINE 20 MG TAB PO STA (16:44)
--- NOTE | 2022-10-15 17:16 | XR ---
EXAMINATION TYPE: XR chest 2V DATE OF EXAM: 10/15/2022 4:59 PM COMPARISON: Chest radiographs from 05/08/2022. TECHNIQUE: XR chest 2V Frontal and lateral views of the chest. CLINICAL INDICATION:Female, 47 years old with history of cough; FINDINGS: Lungs/Pleura: There is no evidence of pleural effusion, focal consolidation, or pneumothorax. Pulmonary vascularity: Unremarkable. Heart/mediastinum: Cardiomediastinal silhouette is unremarkable. Musculoskeletal: No acute osseous pathology. IMPRESSION: No acute cardiopulmonary disease/process.
--- NOTE | 2022-10-15 18:08 | ED ---
General Adult HPI - General Chief complaint: ENT Stated complaint: Rash Time Seen by Provider: 10/15/22 16:30 Source: patient Mode of arrival: ambulatory Limitations: no limitations - History of Present Illness Initial comments: Patient is a 47-year-old female presenting with chief complaint of rash. Patient noticed a rash on her neck yesterday. States that it is very itchy irritating. She has been taking Benadryl. She also admits to sore throat, congestion, bilateral ear pain. No cough, fever, chills, chest pain, difficult to breathing, difficulty swallowing, nausea, vomiting, abdominal pain, weakness, numbness, tingling, headache, vision or hearing changes, dizziness. No new foods, medications, lotions, soaps, or other topical products. - Related Data Home Medications Medication Instructions Recorded Confirmed Vitamin B Complex 1 cap PO DAILY 05/08/22 05/08/22 Previous Rx's Medication Instructions Recorded Albuterol Inhaler [Ventolin Hfa 1 - 2 puff INHALATION Q6HR PRN #2 05/08/22 Inhaler] each Azithromycin [Zithromax Tri-Fermín (3 500 mg PO DAILY 3 Days #3 tab 05/08/22 tabs)] predniSONE [Deltasone] 40 mg PO DAILY #8 tab 05/08/22 Hydrocortisone Cream 1 applic TOPICAL BID PRN #28 gm 10/15/22 [Hydrocortisone 1% Cream] Allergies Allergy/AdvReac Type Severity Reaction Status Date / Time amoxicillin Allergy Rash/Hives Verified 10/15/22 16:28 Penicillins Allergy Rash/Hives Verified 10/15/22 16:28 sulfamethoxazole Allergy Rash/Hives Verified 10/15/22 16:28 [From Bactrim] tramadol Allergy Itching Verified 10/15/22 16:28 trimethoprim [From Bactrim] Allergy Rash/Hives Verified 10/15/22 16:28 codeine phosphate AdvReac Chest Pain Verified 10/15/22 16:28 [From Tylenol-Codeine #3] Review of Systems ROS Statement: Those systems with pertinent positive or pertinent negative responses have been documented in the HPI. ROS Other: All systems not noted in ROS Statement are negative. Past Medical History Past Medical History: Osteoarthritis (OA) Additional Past Medical History / Comment(s): COVID 09/17 History of Any Multi-Drug Resistant Organisms: None Reported Date of last positivie culture/infection: 12/20/10 MDRO Source:: Unknown Past Surgical History: Section, Cholecystectomy, Joint Replacement Additional Past Surgical History / Comment(s): LEFT and right knee Past Psychological History: Bipolar, Depression Smoking Status: Former smoker Past Alcohol Use History: Occasional Past Drug Use History: None Reported General Exam Limitations: no limitations General appearance: alert, in no apparent distress Head exam: Present: atraumatic, normocephalic, normal inspection Eye exam: Present: normal appearance, PERRL, EOMI. Absent: scleral icterus, conjunctival injection, periorbital swelling ENT exam: Present: normal exam, normal oropharynx, mucous membranes moist, TM's normal bilaterally Neck exam: Present: full ROM. Absent: tenderness Respiratory exam: Present: normal lung sounds bilaterally. Absent: respiratory distress, wheezes, rales, rhonchi, stridor Cardiovascular Exam: Present: regular rate, normal rhythm, normal heart sounds. Absent: systolic murmur, diastolic murmur, rubs, gallop, clicks Neurological exam: Present: alert, oriented X3, CN II-XII intact Psychiatric exam: Present: normal affect, normal mood Skin exam: Present: warm, dry, intact, rash (To the neck) Course Vital Signs 10/15/22 10/15/22 16:25 18:25 Temperature 97.9 F Pulse Rate 92 86 Respiratory 16 18 Rate Blood Pressure 108/70 110/72 O2 Sat by Pulse 100 97 Oximetry Medical Decision Making - Medical Decision Making Patient is a 47-year-old female presenting with chief complaint of rash, sore throat, congestion, bilateral ear discomfort. Physical examination rashes noted on the neck. Patient states it is pruritic. Heart and lungs are to auscultation, patient is having no difficulty breathing or swallowing. Normal posterior pharynx. Patient has had no new medications, foods, or other products. Patient is offered steroids, she declined as she states that in the past when she has taken steroids they have caused hallucinations. She is given Benadryl and Pepcid, she had a ride home. Patient is negative for influenza, RSV, Covid, and group A strep. Chest x-ray shows no acute process. Patient is educated on supportive treatment for cold-like symptoms. Given steroid cream for rash. Follow-up with PCP. Report back to ER with any new or worsening symptoms. Discussed return parameters and answered all questions. Patient conveyed verbal understanding and agreed to the plan. I discussed this case in detail with my attending Dr. Hogan - Lab Data Lab Results 10/15/22 10/15/22 Range/Units 17:15 17:15 Influenza Type A (PCR) Not Detected (Not Detectd) Influenza Type B (PCR) Not Detected (Not Detectd) RSV (PCR) Not Detected (Not Detectd) SARS-CoV-2 (PCR) Not Detected (Not Detectd) Group A Strep (PCR) NOT DETECTED (Not Detectd) Disposition Clinical Impression: URI (upper respiratory infection), Rash Disposition: HOME SELF-CARE Condition: Good Instructions (If sedation given, give patient instructions): Upper Respiratory Infection (ED), Acute Rash (ED) Additional Instructions: Follow-up with PCP, some suggestions have been provided for you. Report back to ER with any new or worsening symptoms. Take medication as prescribed. Take Benadryl as needed, do not take before driving or operating heavy machinery as it may cause drowsiness Prescriptions: Hydrocortisone Cream [Hydrocortisone 1% Cream] 1 applic TOPICAL BID PRN #28 gm PRN Reason: Itching Is patient prescribed a controlled substance at d/c from ED?: No Referrals: None,Stated [Primary Care Provider] - 1-2 days Time of Disposition: 18:07
[2022-10-15 18:26] VITALS: BP 110/72; PULSE 86; RESP 18
== END 2022-10-15 18:25 | disposition home or self-care (01) ==
LOC: EC 16:24
DX: J06.9 Acute upper respiratory infection, unspecified (principal); R21 Rash and other nonspecific skin eruption; M19.90 Unspecified osteoarthritis, unspecified site; F31.9 Bipolar disorder, unspecified; Z87.891 Personal history of nicotine dependence; Z20.822 Contact with and (suspected) exposure to COVID-19; Z88.0 Allergy status to penicillin; Z88.2 Allergy status to sulfonamides; Z88.5 Allergy status to narcotic agent
CPT/HCPCS: 87651; 87636; 71046; 99283; 96372; J1200

== ENCOUNTER 2023-04-15 15:23 | Emergency (ER) | payer MEDICARE, OTHER ==
[2023-04-15 16:00] VITALS: BP 132/78; PULSE 80; RESP 18; TEMP 98
[2023-04-15] MEDS ORDERED: KETOROLAC 15 MG/ML 1 ML VIAL IM STA (16:11)
--- NOTE | 2023-04-15 16:59 | XR ---
EXAMINATION TYPE: XR finger LT DATE OF EXAM: 04/15/2023 4:30 PM INDICATION: Patient age:Female; 47 years old; Reason for study: ring finger injury; [facility]. COMPARISON: None TECHNIQUE: Frontal, lateral and oblique views of the left finger were obtained. FINDINGS: Normal alignment of the visualized joints. No acute osseous pathology is identified. No e vidence of soft tissue swelling. IMPRESSION: No acute osseous pathology.
--- NOTE | 2023-04-15 17:03 | XR ---
EXAMINATION TYPE: XR ankle complete LT DATE OF EXAM: 04/15/2023 4:30 PM INDICATION: Patient age:Female; 47 years old; Reason for study: injury; COMPARISON: None TECHNIQUE: The left ankle is imaged in frontal, lateral and oblique projections. FINDINGS: There is no evidence of acute osseous pathology. The joint spaces are well-preserved without evidenc e of subluxation or dislocation. Kager's fat pad is intact. Mild soft tissue swelling around the ankl e. No radiopaque foreign bodies are identified. IMPRESSION: 1. No evidence of acute fracture. 2. Subcutaneous swelling around the ankle likely secondary to underlying soft tissue injury.
--- NOTE | 2023-04-15 17:07 | ED ---
Lower Extremity Injury HPI - General Chief Complaint: Extremity Injury, Lower Stated Complaint: left ankle injury Time Seen by Provider: 04/15/23 15:59 Source: patient Mode of arrival: ambulatory Limitations: no limitations - History of Present Illness Initial Comments: Patient is a 47-year-old female presents to the emergency department for left ankle injury. Patient twisted her ankle while falling down 2 steps. She did not hit her head or lose consciousness. She has pain to the inside of her left ankle with swelling. Pain is worse with ambulation. She also reports mild pain in her left ring finger which she states is a chronic pain due to previous fracture but is hurting more after the fall. - Related Data Home Medications Medication Instructions Recorded Confirmed Vitamin B Complex 1 cap PO DAILY 05/08/22 05/08/22 Previous Rx's Medication Instructions Recorded Albuterol Inhaler [Ventolin Hfa 1 - 2 puff INHALATION Q6HR PRN #2 05/08/22 Inhaler] each Azithromycin [Zithromax Tri-Fermín (3 500 mg PO DAILY 3 Days #3 tab 05/08/22 tabs)] predniSONE [Deltasone] 40 mg PO DAILY #8 tab 05/08/22 Hydrocortisone Cream 1 applic TOPICAL BID PRN #28 gm 10/15/22 [Hydrocortisone 1% Cream] Ibuprofen [Motrin] 800 mg PO Q8HR PRN #30 tab 04/15/23 Allergies Allergy/AdvReac Type Severity Reaction Status Date / Time amoxicillin Allergy Rash/Hives Verified 04/15/23 16:01 Penicillins Allergy Rash/Hives Verified 04/15/23 16:01 sulfamethoxazole Allergy Rash/Hives Verified 04/15/23 16:01 [From Bactrim] tramadol Allergy Itching Verified 04/15/23 16:01 trimethoprim [From Bactrim] Allergy Rash/Hives Verified 04/15/23 16:01 codeine phosphate AdvReac Chest Pain Verified 04/15/23 16:01 [From Tylenol-Codeine #3] Review of Systems ROS Statement: Those systems with pertinent positive or pertinent negative responses have been documented in the HPI. ROS Other: All systems not noted in ROS Statement are negative. Past Medical History Past Medical History: Osteoarthritis (OA) Additional Past Medical History / Comment(s): COVID 09/17 History of Any Multi-Drug Resistant Organisms: None Reported Date of last positivie culture/infection: 12/20/10 MDRO Source:: Unknown Past Surgical History: Section, Cholecystectomy, Joint Replacement Additional Past Surgical History / Comment(s): LEFT and right knee Past Psychological History: Bipolar, Depression Smoking Status: Former smoker Past Alcohol Use History: Occasional Past Drug Use History: None Reported General Exam Limitations: no limitations General appearance: alert, in no apparent distress Neck exam: Present: normal inspection. Absent: tenderness, meningismus, lymphadenopathy Respiratory exam: Present: normal lung sounds bilaterally. Absent: respiratory distress, wheezes, rales, rhonchi, stridor Cardiovascular Exam: Present: regular rate, normal rhythm, normal heart sounds. Absent: systolic murmur, diastolic murmur, rubs, gallop, clicks Right Hand Wrist exam: Present: normal inspection, full ROM. Absent: tenderness, swelling, abrasion, laceration, ecchymosis, deformity, crepitus, dislocation, erythema, amputation Vascular: Present: normal capillary refill. Absent: vascular compromise Left Lower Leg exam: Present: normal inspection, full ROM. Absent: tenderness, swelling Ankle exam: Present: full ROM, tenderness (mild medially ), swelling (mild medally ). Absent: normal inspection, abrasion, laceration, ecchymosis, deformity, crepitus, dislocation, erythema Neurovascular tendon exam: Present: no vascular compromise Neurological exam: Present: alert, oriented X3, CN II-XII intact Psychiatric exam: Present: normal affect, normal mood Skin exam: Present: warm, dry, intact, normal color. Absent: rash Course Vital Signs 04/15/23 15:59 Temperature 98 F Pulse Rate 80 Respiratory 18 Rate Blood Pressure 132/78 O2 Sat by Pulse 98 Oximetry Medical Decision Making - Medical Decision Making Was pt. sent in by a medical professional or institution (, PA, LAUNCH LEADER, urgent care, hospital, or longterm...) When possible be specific @ -No Did you speak to anyone other than the patient for history (EMS, parent, family, police, friend...)? What history was obtained from this source @ -No Did you review nursing and triage notes (agree or disagree)? Why? @ -I reviewed and agree with nursing and triage notes Were old charts reviewed (outside hosp., previous admission, EMS record, old EKG, old radiological studies, urgent care reports/EKG's, longterm records)? Report findings @ -No old charts were reviewed Differential Diagnosis (chest pain, altered mental status, abdominal pain women, abdominal pain men, vaginal bleeding, weakness, fever, dyspnea, syncope, headache, dizziness, GI bleed, back pain, seizure, CVA, palpatations, mental health)? @ -Fracture, sprain, contusion, laceration. Interpreted by me (3pts min.). @ -[As above] X-ray interprted by me (1pt min.). @ -no evidence of fracture or dislocation CT iterpretedby me (1pt min.). @ -[None done] U/S nterprete by me (1pt. min.). @ -[None done] Whattesting ws considered but not performed or refused? (CT, X-rays, U/S, labs)? Why? @ -[None] What medswereconsidered but not given or refused? Why? @ -[None] Did you dscus the management of the patient with other professionals (professionals i.e. , PA, LAUNCH LEADER, lab, RT, psych nurse, social economist, commercial counsel, teacher, loan servicing officer, shelter case manager)? Give summary @ -[No] Was smokingcesation discussed for >3mins.? @ -[No] Was critica cre preformed (if so, how long)? @ -[No] Were there ocal determinants of health that impacted care today? How? (Homelessness, low income, unemployed, alcoholism, drug addiction, transportation, low edu. Level, literacy, decrease access to med. care, fdc, rehab)? @ -[No] Was there d-ecalation of care discussed even if they declined (Discuss DNR or withdrawal of care, Hospice)? DNR status @ -[No] What co-moridties impacted this encounter? (DM, HTN, Smoking, COPD, CAD, Cancer, CVA, ARF, Chemo, Hep., AIDS, mental health diagnosis, sleep apnea, morbid obesity)? @ -[None] Was patiet aditted / discharged? Hospital course, mention meds given and route, prescriptions, significant lab abnormalities, going to OR and other pertinent info. @-Discharged. Suspect a mild to moderate ankle sprain which was placed in an ankle stirrup splint. She was offered crutches however declined states she has them at home. We discussed ankle sprain care in detail. Patient to follow-up with crm specialist Diagnosed new problem with uncertain prognosis? @ -[No] Drug Therapy requiring intensive monitoring for toxicity (Heparin, Nitro, Insulin, Cardizem)? @ -[No] Were any procedures done? @ -yes, splinting Diagnosis/symptom? @ -left ankle sprain Acute, or Chronic, or Acute on Chronic? @ -acute Uncomplicated (without systemic symptoms) or Complicated (systemic symptoms)? @ -uncomplicated Side effects of treatment? @ -[No] Exacerbation, Progression, or Severe Exacerbation? @ -[No] Poses a threat to life or bodily function? How? (Chest pain, [place], NH, pneumonia, PE, COPD, DKA, ARF, appy, cholecystitis, CVA, Diverticulitis, Homicidal, Suicidal, threat to staff... and all critical care pts) @ -[No] Dr. Mcelroy is my attending Disposition Clinical Impression: Fall, Left ankle sprain Disposition: HOME SELF-CARE Instructions (If sedation given, give patient instructions): Ankle Sprain (ED) Additional Instructions: Rest and elevate the joint as much as possible. Ice the injury for the next 24-48 hours. If symptoms continue after, apply warm compress. Take Tylenol or Motrin as needed for pain. Use crutches and bear weight as tolerated until orthopedic evaluation. Follow-up with crm specialist in 1-2 days. Return to the emergency department if you experience new, concerning, or worsening symptoms. Prescriptions: Ibuprofen [Motrin] 800 mg PO Q8HR PRN #30 tab PRN Reason: Pain Is patient prescribed a controlled substance at d/c from ED?: No Referrals: None,Stated [Primary Care Provider] - 1-2 days Agapito Wallis MD [Medical Doctor] - 1-2 days
== END 2023-04-15 17:28 | disposition home or self-care (01) ==
LOC: EC 15:23
DX: S93.402A Sprain of unspecified ligament of left ankle, initial encounter (principal); Z88.0 Allergy status to penicillin; Z88.1 Allergy status to other antibiotic agents; Z88.2 Allergy status to sulfonamides; Z88.5 Allergy status to narcotic agent; Z86.16 Personal history of COVID-19; Z87.891 Personal history of nicotine dependence; W10.9XXA Fall (on) (from) unspecified stairs and steps, initial encounter
CPT/HCPCS: 99283; 96372; 73140; 73610; 29515; J1885

== ENCOUNTER 2023-06-22 20:04 | Emergency (ER) | payer MEDICARE, OTHER ==
[2023-06-22 20:16] VITALS: TEMP 98.9
[2023-06-22] MEDS ORDERED: KETOROLAC 15 MG/ML 1 ML VIAL IM STA (20:24)
--- NOTE | 2023-06-22 21:13 | XR ---
EXAMINATION TYPE: XR tibia fibula LT DATE OF EXAM: 06/22/2023 8:51 PM INDICATION: Patient age:Female; 47 years old; Reason for study: injury; [facility]. COMPARISON: 02/07/2018 TECHNIQUE: The left tibia/fibula was examined in AP and lateral projections. FINDINGS: Left knee arthroplasty changes. Hardware appears intact. No evidence of any acute osseous p athology, joint dislocation, or soft tissue swelling is noted. IMPRESSION: Left knee arthroplasty changes without evidence of fracture.
--- NOTE | 2023-06-22 21:14 | XR ---
EXAMINATION TYPE: XR foot complete LT DATE OF EXAM: 06/22/2023 8:51 PM INDICATION: Patient age:Female; 47 years old; Reason for study: injury; [facility]. COMPARISON: None TECHNIQUE: The left foot was examined in the AP, oblique, and lateral projections. FINDINGS: No evidence of any acute osseous pathology. No evidence of soft tissue swelling. Joints are preserve d. IMPRESSION: No evidence of acute fracture.
--- NOTE | 2023-06-22 21:45 | ED ---
Lower Extremity Injury HPI - General Chief Complaint: Extremity Injury, Lower Stated Complaint: Fall Time Seen by Provider: 06/22/23 20:19 Source: patient Mode of arrival: ambulatory Limitations: no limitations - History of Present Illness Initial Comments: Patient is a 47-year-old female who presents to emergency department for left lower extremity pain after fall. Patient tripped and fell last week landing on her left knee. She denies head trauma, loss of consciousness. Patient has had pain in her knee since the fall which shoots into her leg and foot. She has intermittent numbness and tingling in the knee, leg, and foot. She denies weakness. Patient has more pain at rest and with ambulation.States her extremity does not hurt when she walks. Denies calf pain and swelling. No history of DVT or PE. Denies fever, chills, nausea, vomiting. Patient has history of left knee replacement about 10 years ago. Surgeon unknown - Related Data Home Medications Medication Instructions Recorded Confirmed Vitamin B Complex 1 cap PO DAILY 05/08/22 05/08/22 Previous Rx's Medication Instructions Recorded Albuterol Inhaler [Ventolin Hfa 1 - 2 puff INHALATION Q6HR PRN #2 05/08/22 Inhaler] each Azithromycin [Zithromax Tri-Fermín (3 500 mg PO DAILY 3 Days #3 tab 05/08/22 tabs)] predniSONE [Deltasone] 40 mg PO DAILY #8 tab 05/08/22 Hydrocortisone Cream 1 applic TOPICAL BID PRN #28 gm 10/15/22 [Hydrocortisone 1% Cream] Ibuprofen [Motrin] 800 mg PO Q8HR PRN #30 tab 04/15/23 Ibuprofen [Motrin] 800 mg PO Q6HR #30 tab 06/22/23 Allergies Allergy/AdvReac Type Severity Reaction Status Date / Time amoxicillin Allergy Rash/Hives Verified 06/22/23 20:16 Penicillins Allergy Rash/Hives Verified 06/22/23 20:16 sulfamethoxazole Allergy Rash/Hives Verified 06/22/23 20:16 [From Bactrim] tramadol Allergy Itching Verified 06/22/23 20:16 trimethoprim [From Bactrim] Allergy Rash/Hives Verified 06/22/23 20:16 codeine phosphate AdvReac Chest Pain Verified 06/22/23 20:16 [From Tylenol-Codeine #3] Review of Systems ROS Statement: Those systems with pertinent positive or pertinent negative responses have been documented in the HPI. ROS Other: All systems not noted in ROS Statement are negative. Past Medical History Past Medical History: Osteoarthritis (OA) Additional Past Medical History / Comment(s): COVID 09/17 History of Any Multi-Drug Resistant Organisms: None Reported Date of last positivie culture/infection: 12/20/10 MDRO Source:: Unknown Past Surgical History: Section, Cholecystectomy, Joint Replacement Additional Past Surgical History / Comment(s): LEFT and right knee Past Psychological History: Bipolar, Depression Smoking Status: Former smoker Past Alcohol Use History: Occasional Past Drug Use History: None Reported General Exam Limitations: no limitations General appearance: alert Head exam: Present: atraumatic, normocephalic, normal inspection Respiratory exam: Present: normal lung sounds bilaterally. Absent: respiratory distress, wheezes, rales, rhonchi, stridor Cardiovascular Exam: Present: regular rate, normal rhythm, normal heart sounds. Absent: systolic murmur, diastolic murmur, rubs, gallop, clicks Left Upper Leg exam: Present: normal inspection, full ROM. Absent: tenderness, swelling Knee exam: Present: full ROM. Absent: normal inspection (3 cm healing scab left knee no surrounding erythema, swelling, warmth, fluctuance or drainable abscess), tenderness, swelling, abrasion Lower Leg exam: Present: normal inspection, full ROM. Absent: tenderness, swelling Ankle exam: Present: normal inspection, full ROM. Absent: tenderness, swelling Foot/Toe exam: Present: normal inspection, full ROM. Absent: tenderness, swelling Neurovascular tendon exam: Present: no vascular compromise. Absent: pulse de ficit, sensory deficit Gait: observed and normal Course Vital Signs 06/22/23 06/22/23 20:13 21:59 Temperature 98.9 F Pulse Rate 74 64 Respiratory 20 18 Rate Blood Pressure 134/76 140/85 O2 Sat by Pulse 99 98 Oximetry Medical Decision Making - Medical Decision Making Was pt. sent in by a medical professional or institution (, PA, PRODUCTION INSPECTOR, urgent care, hospital, or correction...) When possible be specific @ -No Did you speak to anyone other than the patient for history (EMS, parent, family, police, friend...)? What history was obtained from this source @ -No Did you review nursing and triage notes (agree or disagree)? Why? @ -I reviewed and agree with nursing and triage notes Were old charts reviewed (outside hosp., previous admission, EMS record, old EKG, old radiological studies, urgent care reports/EKG's, correction records)? Report findings @ -No old charts were reviewed Differential Diagnosis (chest pain, altered mental status, abdominal pain women, abdominal pain men, vaginal bleeding, weakness, fever, dyspnea, syncope, headache, dizziness, GI bleed, back pain, seizure, CVA, palpatations, mental health)? @ -Fracture, dislocation, sprain, nerve injury.This list is not meant to be all-inclusive EKG interpreted by me (3pts min.). @ -As above X-rays interpreted by me (1pt min.). @ -No acute fracture or dislocation CT interpreted by me (1pt min.). @ -None done U/S interpreted by me (1pt. min.). @ -None done What testing was considered but not performed or refused? (CT, X-rays, U/S, labs)? Why? @ -None What meds were considered but not given or refused? Why? @ -None Did you discuss the management of the patient with other professionals (professionals i.e. , PA, PRODUCTION INSPECTOR, lab, RT, psych nurse, long term care social worker, paver layer, teacher, real estate loan officer, casework specialist)? Give summary @ -No Was smoking cessation discussed for >3mins.? @ -No Was critical care preformed (if so, how long)? @ -No Were there social determinants of health that impacted care today? How? (Homelessness, low income, unemployed, alcoholism, drug addiction, transportation, low edu. Level, literacy, decrease access to med. care, snf, rehab)? @ -No Was there de-escalation of care discussed even if they declined (Discuss DNR or withdrawal of care, Hospice)? DNR status @ -[No] What co-morbidities impacted this encounter? (DM, HTN, Smoking, COPD, CAD, Cancer, CVA, ARF, Chemo, Hep., AIDS, mental health diagnosis, sleep apnea, morbid obesity)? @ -[None] Was patient admitted / discharged? Hospital course, mention meds given and route, prescriptions, significant lab abnormalities, going to OR and other pertinent info. @ -Patient presenting with left lower extremity pain after fall. Patient complains of numbness and tingling from the knee down. Sensation is intact. No vascular compromise. Full range of motion. No swelling or erythema of the extremity. No calf pain or swelling. Gait observed and normal. X-ray obtained interpreted by myself/radiology showing no fracture or dislocation of the knee, tibia, fibula, ankle, foot. Pain improved after Toradol. Patient will be discharged with symptomatic management. She is referred to evaluation specialist for further evaluation and management Undiagnosed new problem with uncertain prognosis? @ -[No] Drug Therapy requiring intensive monitoring for toxicity (Heparin, Nitro, Insulin, Cardizem)? @ -[No] Were any procedures done? @ -[No] Diagnosis/symptom? @ -left knee injury, left leg pain Acute, or Chronic, or Acute on Chronic? @ -Acute Uncomplicated (without systemic symptoms) or Complicated (systemic symptoms)? @Uncomplicated Side effects of treatment? @ -[No] Exacerbation, Progression, or Severe Exacerbation? @ -[No] Poses a threat to life or bodily function? How? (Chest pain, [place], [place], pneumonia, PE, COPD, DKA, ARF, appy, cholecystitis, CVA, Diverticulitis, Homicidal, Dhillon icidal, threat to staff... and all critical care pts) @ -[No] Dr. Hogan is my attending Disposition Clinical Impression: Left knee injury, Left leg pain Disposition: HOME SELF-CARE Condition: Good Instructions (If sedation given, give patient instructions): Knee Sprain (ED) Additional Instructions: Rest, ice, elevate injury. Follow-up with evaluation specialist in 1-2 days. Return to the emergency department if you experience new, concerning, or worsening symptoms Prescriptions: Ibuprofen [Motrin] 800 mg PO Q6HR #30 tab Is patient prescribed a controlled substance at d/c from ED?: No Referrals: None,Stated [Primary Care Provider] - 1-2 days Lars Moctezuma MD [STAFF PHYSICIAN] - 1-2 days
[2023-06-22 22:02] VITALS: BP 140/85; PULSE 64; RESP 18
== END 2023-06-22 22:00 | disposition home or self-care (01) ==
LOC: EC 20:04
DX: S89.92XA Unspecified injury of left lower leg, initial encounter (principal); M19.90 Unspecified osteoarthritis, unspecified site; Z88.0 Allergy status to penicillin; Z79.1 Long term (current) use of non-steroidal anti-inflammatories (NSAID); Z88.2 Allergy status to sulfonamides; Z88.1 Allergy status to other antibiotic agents; Z88.5 Allergy status to narcotic agent; Z86.16 Personal history of COVID-19; Z86.59 Personal history of other mental and behavioral disorders; Z87.891 Personal history of nicotine dependence; Z88.8 Allergy status to other drugs, medicaments and biological substances; Z90.49 Acquired absence of other specified parts of digestive tract; Z96.652 Presence of left artificial knee joint; Z88.6 Allergy status to analgesic agent; W01.0XXA Fall on same level from slipping, tripping and stumbling without subsequent striking against object, initial encounter
CPT/HCPCS: 73590; 73630; 99283; 96372; J1885

== ENCOUNTER 2023-11-05 13:42 | Emergency (ER) | payer MEDICARE, OTHER ==
--- NOTE | 2023-11-05 14:38 | ED ---
General Adult HPI - General Source: patient, RN notes reviewed Mode of arrival: ambulatory Limitations: no limitations <Jesus Manuel Grimm Ortiz - Last Filed: 11/05/23 14:38> - General Source: patient, RN notes reviewed Mode of arrival: ambulatory Limitations: no limitations <Beena Nguyen - Last Filed: 11/06/23 06:53> - General Chief complaint: ENT Stated complaint: lower left toothache uti Time Seen by Provider: 11/05/23 14:38 - History of Present Illness Initial comments: 48-year-old female presents emergency Department with chief complaint left lower dental pain, swelling. Patient states she has broken tooth. Patient also states she feels that she has a UTI. (Jesus Manuel Grimm) This is a 48-year-old female who presents to the emergency department for left- sided dental pain and swelling. States that over the last couple days she has developed increasing pain and swelling. States that she has a tooth with a hole in it on the left lower jaw that seems to be causing the problem. She has tried calling a dentist, but has not been able to get anyone to answer the phone. States that she ran out of ibuprofen, and would like a prescription for this. Additionally, she is concerned about a UTI. Reports urinary urgency. Also reports a foul odor and dark urine. Denies any burning with urination. She does note some white discharge and itching as well. Symptoms have been going on for about a week at this point. Denies any concern for STD exposure. (Beena Nguyen) - Related Data Home Medications Medication Instructions Recorded Confirmed Vitamin B Complex 1 cap PO DAILY 05/08/22 05/08/22 Previous Rx's Medication Instructions Recorded Albuterol Inhaler [Ventolin Hfa 1 - 2 puff INHALATION Q6HR PRN #2 05/08/22 Inhaler] each Azithromycin [Zithromax Tri-Fermín (3 500 mg PO DAILY 3 Days #3 tab 05/08/22 tabs)] predniSONE [Deltasone] 40 mg PO DAILY #8 tab 05/08/22 Hydrocortisone Cream 1 applic TOPICAL BID PRN #28 gm 10/15/22 [Hydrocortisone 1% Cream] Ibuprofen [Motrin] 800 mg PO Q8HR PRN #30 tab 04/15/23 Ibuprofen [Motrin] 800 mg PO Q6HR #30 tab 06/22/23 Fluconazole [Diflucan] 150 mg PO ONCE #2 tab 11/05/23 Ibuprofen 800 mg PO Q8H PRN #30 tab 11/05/23 clindamycin HCL 300 mg PO Q6H 10 Days #40 capsule 11/05/23 Allergies Allergy/AdvReac Type Severity Reaction Status Date / Time amoxicillin Allergy Rash/Hives Verified 06/22/23 20:16 Penicillins Allergy Rash/Hives Verified 06/22/23 20:16 sulfamethoxazole Allergy Rash/Hives Verified 06/22/23 20:16 [From Bactrim] tramadol Allergy Itching Verified 06/22/23 20:16 trimethoprim [From Bactrim] Allergy Rash/Hives Verified 06/22/23 20:16 codeine phosphate AdvReac Chest Pain Verified 06/22/23 20:16 [From Tylenol-Codeine #3] Review of Systems ROS Other: All systems not noted in ROS Statement are negative. <Jesus Manuel Grimm - Last Filed: 11/05/23 14:38> ROS Other: All systems not noted in ROS Statement are negative. <Beena Nguyen - Last Filed: 11/06/23 06:53> ROS Statement: Those systems with pertinent positive or pertinent negative responses have been documented in the HPI. Past Medical History Past Medical History: Osteoarthritis (OA) Additional Past Medical History / Comment(s): COVID 09/17 History of Any Multi-Drug Resistant Organisms: None Reported Date of last positivie culture/infection: 12/20/10 MDRO Source:: Unknown Past Surgical History: Section, Cholecystectomy, Joint Replacement Additional Past Surgical History / Comment(s): LEFT and right knee Past Psychological History: Bipolar, Depression Smoking Status: Former smoker Past Alcohol Use History: Occasional Past Drug Use History: None Reported <Jesus Manuel Grimm - Last Filed: 11/05/23 14:38> General Exam <Jesus Manuel Grimm - Last Filed: 11/05/23 14:38> General appearance: alert, in no apparent distress Head exam: Present: other (Mild left-sided facial pain and swelling along the left lower jawline. Multiple dental caries.) ENT exam: Present: TM's normal bilaterally, normal external ear exam Respiratory exam: Present: normal lung sounds bilaterally. Absent: respiratory distress, wheezes, rales, rhonchi, stridor Cardiovascular Exam: Present: regular rate, normal rhythm, normal heart sounds. Absent: systolic murmur, diastolic murmur, rubs, gallop, clicks GI/Abdominal exam: Present: soft, normal bowel sounds. Absent: distended, tenderness, guarding, rebound, rigid Neurological exam: Present: alert, oriented X3, CN II-XII intact Psychiatric exam: Present: normal affect, normal mood Skin exam: Present: warm, dry, intact, normal color. Absent: rash <Beena Nguyen - Last Filed: 11/06/23 06:53> - General Exam Comments Initial Comments: Visual Physical Exam Vital signs reviewed General: Well-appearing, nontoxic, no acute distress. Head: Normocephalic, atraumatic Eyes: PERRLA, EOMI ENT: Airway patent Chest: Nonlabored breathing Skin: No visual rash, normal skin tone Neuro: Alert and oriented 3 Musculoskeletal: No gross abnormalities (Jesus Manuel Grimm) Course Vital Signs 11/05/23 11/05/23 14:34 17:53 Temperature 97.7 F 98.4 F Pulse Rate 56 L 76 Respiratory 18 18 Rate Blood Pressure 158/81 146/80 O2 Sat by Pulse 98 97 Oximetry Medical Decision Making <Jesus Manuel Grimm - Last Filed: 11/05/23 14:38> <Beena Nguyen - Last Filed: 11/06/23 06:53> - Medical Decision Making I completed the quick note portion of this chart signed Jesus Manuel Grimm PA-C (Jesus Manuel Grimm) This is a 48-year-old female who presents to the emergency department for left- sided dental pain and urinary urgency. Was pt. sent in by a medical professional or institution? @ -No Did you speak to anyone other than the patient for history? @ -No Did you review nursing and triage notes? @ -Yes, and I agree, it is accurate with regards to the patient's symptoms. Were old charts reviewed? @ -No Differential Diagnosis? @ -Differential Dental Pain: Dental abscess, chipped tooth, dental carries, rebeca's angina, trigeminal neuralgia, this is not meant to be an all-inclusive list. EKG interpreted by me (3pts min.)? @ -Not obtained X-rays interpreted by me (1pt min.)? @ -Not obtained CT interpreted by me (1pt min.)? @ -Not obtained U/S interpreted by me (1pt. min.)? @ -Not obtained What testing was considered but not performed? (CT, X-rays, U/S, labs)? Why? @ -None What meds were considered but not given? Why? @ -None Did you discuss the management of the patient with other professionals? @ -No Did you reconcile home meds? @ -No Was smoking cessation discussed for >3mins.? @ -I discussed smoking cessation for greater than 3 minutes. The risk of smoking were discussed with the patient including but not limited to risks of cancer, stroke, coronary artery disease and COPD. Also discussed with patient were multiple methods of quitting smoking. Lastly we discussed the financial cost of smoking. Was critical care preformed (if so, how long)? @ -No Were there social determinants of health that impacted care today? How? (Homelessness, low income, unemployed, alcoholism, drug addiction, transportation, low edu. Level, literacy, decrease access to med. care, halfway, rehab)? @ -No Was there de-escalation of care discussed even if they declined? (Discuss DNR or withdrawal of care, Hospice)? @ -No What co-morbidities impacted this encounter? (DM, HTN, Smoking, COPD, CAD, Cancer, CVA, Hep., AIDS, mental health diagnosis, sleep apnea, morbid obesity)? @ -Smoking Was patient admitted / discharged? @ -Discharged. Physical examination is consistent with a dental abscess. Urinalysis negative for signs of infection, however urine was sent for culture. Itching with vaginal discharge is more so suggestive of a yeast infection, especially in light of the other urinary symptoms and negative urinalysis. Advised the patient that we will treat her with Diflucan for possible yeast infection. Rx for clindamycin provided with regards to the dental abscess and Diflucan for yeast infection. She was also given a refill on ibuprofen for management of pain. Advised she continue trying to get into a dentist as well for definitive management of her dental problems. Undiagnosed new problem with uncertain prognosis? @ -None Drug Therapy requiring intensive monitoring for toxicity (Heparin, Nitro, Insulin, Cardizem)? @ -None Were any procedures done? @ -None Diagnosis/symptom? @ -Dental abscess, vulvovaginal candidiasis Acute, or Chronic, or Acute on Chronic? @ -Acute Uncomplicated (without systemic symptoms) or Complicated (systemic symptoms)? @ -Uncomplicated Side effects of treatment? @ -None Exacerbation, Progression, or Severe Exacerbation] @ -Not applicable Poses a threat to life or bodily function? @ -No Return precautions reviewed in depth, the patient is instructed to return to the emergency department with any new, worsening, or concerning symptoms. Patient verbalized understanding. This case was discussed in detail with the attending ED physician, Dr. Cheatham. Presentation, findings, and treatment plan discussed in detail as well. (Beena Nguyen) - Lab Data Lab Results 11/05/23 Range/Units 14:36 Urine Color Yellow Urine Appearance Clear (Clear) Urine pH 6.0 (5.0-8.0) Ur Specific [place] 1.030 (1.001-1.035) Urine Protein Negative (Negative) Urine Glucose (UA) Negative (Negative) Urine Ketones Negative (Negative) Urine Blood Negative (Negative) Urine Nitrite Negative (Negative) Urine Bilirubin Negative (Negative) Urine Urobilinogen <2.0 (<2.0) mg/dL Ur Leukocyte Esterase Small H (Negative) Urine RBC 5 (0-5) /hpf Urine WBC 7 H (0-5) /hpf Ur Squamous Epith Cells 2 (0-4) /hpf Urine Bacteria Rare H (None) /hpf Urine Mucus Moderate H (None) /hpf Disposition <Jesus Manuel Grimm - Last Filed: 11/05/23 14:38> Is patient prescribed a controlled substance at d/c from ED?: No <Beena Nguyen - Last Filed: 11/06/23 06:53> Clinical Impression: Dental abscess, Vulvovaginal candidiasis, Nicotine dependence Disposition: HOME SELF-CARE Instructions (If sedation given, give patient instructions): Dental Abscess (ED), Yeast Infection (ED) Additional Instructions: Return to the emergency department with any new, worsening, or concerning sympto ms. Take the antibiotic as prescribed for 10 days. You will take the Diflucan once today, and repeat the dose in 3 days if symptoms persist. You can take the ibuprofen with Tylenol for additional symptom relief. Continue trying to become established with a dentist. Follow up with your primary care provider in 1-2 days. Prescriptions: clindamycin HCL 300 mg PO Q6H 10 Days #40 capsule Fluconazole [Diflucan] 150 mg PO ONCE #2 tab Ibuprofen 800 mg PO Q8H PRN #30 tab PRN Reason: Pain Referrals: None,Stated [Primary Care Provider] - 1-2 days
[2023-11-05 14:47] VITALS: RESP 18
[2023-11-05 14:57] LABS: Bacteria,Urine Rare /hpf; Mucus,Urine Moderate /hpf; RBC,Urine 5 /hpf (0-5); Squamous Epithelial Cell,Urine 2 /hpf (0-4); WBC,Urine 7 /hpf (0-5)
[2023-11-05] MEDS ORDERED: KETOROLAC 15 MG/ML 1 ML VIAL IM STA (15:25)
[2023-11-05 16:22] LABS: Appearance,Urine Clear (Clear); Bilirubin,Urine Negative (Negative); Blood,Urine Negative (Negative); Color,Urine Yellow; Glucose,Urine (UA) Negative (Negative); Ketones,Urine Negative (Negative); Leukocyte Esterase,Urine Small (Negative); Nitrite,Urine Negative (Negative); Protein,Urine Negative (Negative); Urobilinogen,Urine <2.0 mg/dL (<2.0)
[2023-11-05 17:55] VITALS: BP 146/80; PULSE 76; TEMP 98.4
== END 2023-11-05 17:53 | disposition home or self-care (01) ==
LOC: EC 13:42
DX: K04.7 Periapical abscess without sinus (principal); B37.31 Acute candidiasis of vulva and vagina; F17.200 Nicotine dependence, unspecified, uncomplicated; Z86.59 Personal history of other mental and behavioral disorders; Z86.16 Personal history of COVID-19; Z88.0 Allergy status to penicillin; Z88.2 Allergy status to sulfonamides; Z88.5 Allergy status to narcotic agent; Z88.1 Allergy status to other antibiotic agents
CPT/HCPCS: 81001; 99283; 99406; 96372; J1885

== ENCOUNTER 2024-05-21 18:12 | Emergency (ER) | payer MEDICARE, OTHER ==
[2024-05-21 18:20] VITALS: RESP 18
[2024-05-21] MEDS: IBUPROFEN 600 MG TAB PO STA (19:36)
[2024-05-21] MEDS: ACETAMINOPHEN TAB 325 MG TAB PO STA (19:37)
--- NOTE | 2024-05-21 20:16 | XR ---
EXAMINATION TYPE: XR hand complete LT DATE OF EXAM: 05/21/2024 7:47 PM CLINICAL INDICATION:Female, 48 years old with history of pain; [facility] COMPARISON: None TECHNIQUE: XR hand complete LT Frontal, lateral and oblique views were obtained. FINDINGS/IMPRESSION: 1. Bony Protuberance is seen between the first and second digit unclear etiology possibly representi ng osteophyte formation. Consider further evaluation with outpatient workup. 2. No evidence of fracture.
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
[2024-05-21 21:19] VITALS: BP 136/83; PULSE 74; TEMP 98
== END 2024-05-21 21:19 | disposition home or self-care (01) ==
LOC: EC 18:12
DX: M25.742 Osteophyte, left hand (principal); Z87.891 Personal history of nicotine dependence; Z88.0 Allergy status to penicillin; Z88.1 Allergy status to other antibiotic agents; Z88.2 Allergy status to sulfonamides; Z88.5 Allergy status to narcotic agent; Z88.6 Allergy status to analgesic agent; Z88.8 Allergy status to other drugs, medicaments and biological substances; Z86.16 Personal history of COVID-19
CPT/HCPCS: 99283

== ENCOUNTER 2024-11-23 09:51 | Emergency (ER) | payer MEDICARE, OTHER ==
[2024-11-23 09:55] VITALS: BP 135/92; PULSE 90; RESP 18; TEMP 98.4
--- NOTE | 2024-11-23 10:12 | ED ---
Chest Pain HPI - General Chief Complaint: Chest Pain Stated Complaint: chest pain runny nose itchy eyes Time Seen by Provider: 11/23/24 09:56 Source: patient, RN notes reviewed Mode of arrival: ambulatory Limitations: no limitations - History of Present Illness Initial Comments: 49-year-old female presented to ER for evaluation of chest discomfort. Patient reports for the past 3 days she has been having a cough, sinus pressure and ear discomfort. She states she woke up this morning with 10 out of 10 discomfort to her chest. She describes it as a "chest on fire" sensation. She also admits to shortness of breath during this episode. She has no known cardiac history. She does take propranolol for anxiety. Patient reports her discomfort currently is a 5 out of 10. She denies any dizziness, lightheadedness, nausea, vomiting, abdominal pain, constipation/diarrhea, urinary complaints or peripheral edema. No history of blood clots. No other complaints. - Related Data Home Medications Medication Instructions Recorded Confirmed DULoxetine HCL [Cymbalta] 30 mg PO HS 11/23/24 11/23/24 Propranolol [Inderal] 10 mg PO HS 11/23/24 11/23/24 Allergies Allergy/AdvReac Type Severity Reaction Status Date / Time amoxicillin Allergy Rash/Hives Verified 11/23/24 11:46 Penicillins Allergy Rash/Hives Verified 11/23/24 11:46 sulfamethoxazole Allergy Rash/Hives Verified 11/23/24 11:46 [From Bactrim] tramadol Allergy Itching Verified 11/23/24 11:46 trimethoprim [From Bactrim] Allergy Rash/Hives Verified 11/23/24 11:46 codeine phosphate AdvReac Chest Pain Verified 11/23/24 11:46 [From Tylenol-Codeine #3] Review of Systems ROS Statement: Those systems with pertinent positive or pertinent negative responses have been documented in the HPI. ROS Other: All systems not noted in ROS Statement are negative. EKG Findings - EKG Comments: EKG Findings:: EKG taken at 10: [address] showing sinus rhythm. No ST segment elevat ions depressions or T wave inversions. Ventricular rate 69, UT interval 140, QRS duration 92, QT/QTc 373/393. Past Medical History Past Medical History: Osteoarthritis (OA) Additional Past Medical History / Comment(s): COVID 09/17 History of Any Multi-Drug Resistant Organisms: None Reported Date of last positivie culture/infection: 12/20/10 MDRO Source:: Unknown Past Surgical History: Section, Cholecystectomy, Joint Replacement Additional Past Surgical History / Comment(s): LEFT and right knee Past Psychological History: Bipolar, Depression Smoking Status: Former smoker, Vaper Past Alcohol Use History: Occasional Past Drug Use History: None Reported General Exam Limitations: no limitations General appearance: alert, in no apparent distress, anxious, other (Patient crying during exam) ENT exam: Present: normal oropharynx (mild erythema), mucous membranes moist, TM's normal bilaterally Respiratory exam: Present: normal lung sounds bilaterally. Absent: respiratory distress, wheezes, rales, rhonchi, stridor Cardiovascular Exam: Present: regular rate, normal rhythm, normal heart sounds. Absent: systolic murmur, diastolic murmur, rubs, gallop, clicks Extremities exam: Present: normal inspection, full ROM, normal capillary refill. Absent: tenderness, pedal edema, joint swelling, calf tenderness Neurological exam: Present: alert, oriented X3, CN II-XII intact Psychiatric exam: Present: anxious Skin exam: Present: warm, dry, intact, normal color. Absent: rash Course Vital Signs 11/23/24 09:52 Temperature 98.4 F Pulse Rate 90 Respiratory 18 Rate Blood Pressure 135/92 O2 Sat by Pulse 96 Oximetry Chest Pain MDM - MDM Was pt. sent in by a medical professional or institution (MALDONADO Blanchard, RAIL GRINDER, urgent care, hospital, or long-term...) When possible be specific @ -No Did you speak to anyone other than the patient for history (EMS, parent, family, police, friend...)? What history was obtained from this source @ -No Did you review nursing and triage notes (agree or disagree)? Why? @ -I reviewed and agree with nursing and triage notes Were old charts reviewed (outside hosp., previous admission, EMS record, old EKG, old radiological studies, urgent care reports/EKG's, long-term records)? Report findings @ -No old charts were reviewed Differential Diagnosis (chest pain, altered mental status, abdominal pain women, abdominal pain men, vaginal bleeding, weakness, fever, dyspnea, syncope, headache, dizziness, GI bleed, back pain, seizure, CVA, palpatations, mental health, musculoskeletal)? @ -Differential Chest Pain:Stable Angina, Unstable Angina, STEMI, NSTEMI Aortic Dissection, Pneumothorax, Musculoskeletal, Esophageal Spasm GERD, Cholecystitis, Pancreatitis, Zoster, this is not meant to be an all-inclusive list. EKG interpreted by me (3pts min.). @ -As above X-rays interpreted by me (1pt min.). @ -CXR interpreted by me negative for acute focal consolidations, pneumothorax or pleural effusions. CT interpreted by me (1pt min.). @ -None done U/S interpreted by me (1pt. min.). @ -None done What testing was considered but not performed or refused? (CT, X-rays, U/S, labs)? Why? @ -None What meds were considered but not given or refused? Why? @ -None Did you discuss the management of the patient with other professionals (professionals i.e. , PA, RAIL GRINDER, lab, RT, psych nurse, home health care social worker, chimney mechanic, teacher, aoc plans intelligence officer, casework manager)? Give summary @ -No Was smoking cessation discussed for >3mins.? @ -No Was critical care preformed (if so, how long)? @ -No Were there social determinants of health that impacted care today? How? (Homelessness, low income, unemployed, alcoholism, drug addiction, transportation, low edu. Level, literacy, decrease access to med. care, prison, rehab)? @ -No Was there de-escalation of care discussed even if they declined (Discuss DNR or withdrawal of care, Hospice)? DNR status @ -No What co-morbidities impacted this encounter? (DM, HTN, Smoking, COPD, CAD, Cancer, CVA, ARF, Chemo, Hep., AIDS, mental health diagnosis, sleep apnea, morbid obesity)? @ -None Was patient admitted / discharged? Hospital course, mention meds given and route, prescriptions, significant lab abnormalities, going to OR and other pertinent info. @ -Discharged. 49-year-old female presented to the ER for evaluation of chest discomfort and cough. On examination, patient resting comfortably in exam room no signs of acute distress. Patient is crying on exam. Vitals within acceptable limits. CBC Unremarkable. CMP unimpressive. Troponin x 2 negative. RSV positive. EKG showing a sinus rhythm. Patient given IV fluids in the ER. Upon reevaluation, patient resting company exam no signs of acute distress. I updated patient on laboratory studies results. I did recommend second troponin given age and chest discomfort, patient is agreeable. Second troponin drawn and negative. Prior to resulting second troponin patient did elope from the ER. Patient is stable for discharge as symptoms believed to be related to viral illness. Strict return parameters discussed. Patient discharged in stable condition with follow-up to PCP. Patient verbally expressed understanding and agreement with care plan. Case discussed with ED attending, Dr. Cheatham. Undiagnosed new problem with uncertain prognosis? @ -No Drug Therapy requiring intensive monitoring for toxicity (Heparin, Nitro, Insulin, Cardizem)? @ -No Were any procedures done? @ -No Diagnosis/symptom? @ -RSV/acute viral sinusitis Acute, or Chronic, or Acute on Chronic? @ -Acute Uncomplicated (without systemic symptoms) or Complicated (systemic symptoms)? @ -Acute Side effects of treatment? @ -No Exacerbation, Progression, or Severe Exacerbation? @ -No Poses a threat to life or bodily function? How? (Chest pain, [place], [place], pneumonia, PE, COPD, DKA, ARF, appy, cholecystitis, CVA, Diverticulitis, Homicidal, Suicidal, threat to staff... and all critical care pts) @ -No Disposition Clinical Impression: RSV (respiratory syncytial virus infection), Acute viral sinusitis Disposition: HOME SELF-CARE Condition: Stable Additional Instructions: Is patient prescribed a controlled substance at d/c from ED?: No Referrals: None,Stated [Primary Care Provider] - 1-2 days Time of Disposition: 12:21
[2024-11-23] MEDS: SODIUM CHLORIDE 0.9% 1,000 ML IV STA (10:18)
[2024-11-23 10:29] LABS: Basophils % (A) 1 %; Eosinophils # (A) 0.2 k/uL (0-0.7); Eosinophils % (A) 4 %; HCT 40.3 % (34.0-46.0); HGB 13.1 gm/dL (11.4-16.0); Lymphocytes % (A) 15 %; MCH 28.8 pg (25.0-35.0); MCHC 32.6 g/dL (31.0-37.0); MCV 88.3 fL (80.0-100.0); Mean Platelet Volume 6.7; Monocytes # (A) 0.5 k/uL (0-1.0); Monocytes % (A) 8 %; Neutrophils # (A) 4.3 k/uL (1.3-7.7); Neutrophils % (A) 70 %; Platelet Count 273 k/uL (150-450); RBC 4.56 m/uL (3.80-5.40); RDW 13.4 % (11.5-15.5); WBC 6.2 k/uL (3.8-10.6)
--- NOTE | 2024-11-23 10:32 | XR ---
Chest, 2 view. HISTORY: Chest pain. COMPARISON: 10/15/2022 TECHNIQUE: PA and lateral views the chest are obtained. FINDINGS: The lungs are clear and there is no consolidative or interstitial opacity. There is no pleural effusion or pneumothorax. The heart, pulmonary vasculature, mediastinum and royce appear normal. The osseous structures are intact. IMPRESSION: No significant abnormality seen. No acute cardiopulmonary disease. [facility], , 11/23/2024 10:30 AM
[2024-11-23 10:44] LABS: ALT 19 U/L (4-34); AST 17 U/L (14-36); African American GFR (CKD) >90 (>60 ml/min/1.73 sqM); Albumin 4.1 g/dL (3.5-5.0); Alkaline Phosphatase 65 U/L (38-126); Anion Gap 7 mmol/L; Blood Urea Nitrogen 15 mg/dL (7-17); Calcium 9.1 mg/dL (8.4-10.2); Carbon Dioxide 21 mmol/L (22-30); Chloride 109 mmol/L (98-107); Glucose 100 mg/dL (74-99); Non-African American GFR(CKD) >90 (>60 ml/min/1.73 sqM); Potassium 4.3 mmol/L (3.5-5.1); Sodium 137 mmol/L (137-145); Total Bilirubin 0.4 mg/dL (0.2-1.3); Total Protein 6.6 g/dL (6.3-8.2)
[2024-11-23 10:46] LABS: INR 0.9 (<1.2); Partial Thromboplastin Time 23.9 sec (22.0-30.0)
[2024-11-23 11:13] LABS: Influenza A Not Detected (Not Detectd); Influenza B Not Detected (Not Detectd); RSV Detected (Not Detectd)
== END 2024-11-23 12:25 | disposition home or self-care (01) ==
LOC: EC 09:51
DX: J01.90 Acute sinusitis, unspecified (principal); B97.4 Respiratory syncytial virus as the cause of diseases classified elsewhere; F17.290 Nicotine dependence, other tobacco product, uncomplicated; Z88.0 Allergy status to penicillin; Z88.1 Allergy status to other antibiotic agents; Z88.2 Allergy status to sulfonamides; Z88.5 Allergy status to narcotic agent; Z88.6 Allergy status to analgesic agent; Z86.16 Personal history of COVID-19
CPT/HCPCS: 36415; 71046; 80053; 83735; 84484; 85025; 85610; 85730; 87636; 93005; 96360; 99285

== ENCOUNTER → 2025-05-14 | Outpatient (CLI) | payer MEDICARE, OTHER ==
[2025-05-14 15:12] LABS: Basophils # (A) 0.04 X 10*3/uL (0.00-0.10); Basophils % (A) 1.1 %; Eosinophils # (A) 0.14 X 10*3/uL (0.04-0.35); Eosinophils % (A) 3.7 %; HCT 40.3 % (37.2-46.3); HGB 12.9 g/dL (12.0-15.0); Immature Grans, Automated 0.30 %; Lymphocytes # (A) 1.03 X 10*3/uL (0.90-5.00); Lymphocytes % (A) 27.4 %; MCH 28.2 pg (27.0-32.0); MCHC 32.0 g/dL (32.0-37.0); MCV 88.2 FL (80.0-97.0); Monocytes # (A) 0.46 X 10*3/uL (0.20-1.00); Monocytes % (A) 12.2 %; NRBC Per 100 WBC 0 X 10*3/uL (0.00-0.01); Neutrophils # (A) 2.08 X 10*3/uL (1.80-7.70); Neutrophils % (A) 55.3 %; Platelet Count 276 X 10*3/uL (140-440); RBC 4.57 X 10*6/uL (4.10-5.20); RDW 13.3 % (11.5-14.5); WBC 3.76 X 10*3/uL (4.50-10.00)
[2025-05-14 15:33] LABS: ALT 16 U/L (8-44); AST 17 U/L (13-35); Albumin 4.1 g/dL (3.8-4.9); Albumin/Globulin Ratio 2.05 Ratio (1.60-3.17); Alkaline Phosphatase 69 U/L (41-126); Anion Gap 7.50 mmol/L (4.00-12.00); BUN/Creat Ratio 16.75 Ratio (12.00-20.00); Blood Urea Nitrogen 13.4 mg/dL (9.0-27.0); Calcium 8.9 mg/dL (8.7-10.3); Carbon Dioxide 25.5 mmol/L (21.6-31.8); Chloride 108 mmol/L (96-109); Cholesterol 148.00 mg/dL (0.00-200.00); Globulin 2.0 g/dL (1.6-3.3); Glucose 109 mg/dL (70-110); HDL Cholesterol 46.90 mg/dL (40.00-60.00); LDL Cholesterol,Calculated 87.7 mg/dL (0.0-131.0); Potassium 4.5 mmol/L (3.5-5.5); Sodium 141 mmol/L (135-145); T4, Free (Free Thyroxine) 0.95 ng/dL (0.80-1.80); Total Protein 6.1 g/dL (6.2-8.2); Triglycerides 67.00 mg/dL (0.00-149.00); VLDL Calculation 13.40 mg/dL (5.00-40.00)
== END | disposition home or self-care (01) ==
LOC: LABWHC1 08:35
PROVIDERS: ATTEND Registered Nurse Gerontology
DX: E78.5 Hyperlipidemia, unspecified (principal); E07.9 Disorder of thyroid, unspecified
CPT/HCPCS: 36415; 80053; 80061; 84439; 84443; 85025